=== PATIENT | female | born 1935 | race Caucasian/White ===

== ENCOUNTER → 2017-01-15 | Outpatient (CLI) | payer BC ==
[~2017-01-15] MED LIST: ASCO10003 PO; ASPEC81 PO; ATV1 PO; B-COTAB18 PO; DVNC160 PO; ETAN50IN2; FLV1 PO; FRS/40 PO; GLUCTAB7 PO; LACT1CAP6 PO; LEUC5TAB PO; METH2.5T PO; NIFE20CA PO; NXM/40 PO; SIMV40TA2 PO
[2017-01-15 10:58] LABS: BASO ABS # 0.06 K/uL (0-0.2); COMPLETE YES; EOS % 1.2 %; HEMATOCRIT 41.6 % (37-47); IG% 0.2 %; LYMPH % 26.3 %; LYMPH ABS # 1.56 K/uL (1.2-3.4); MEAN CELL VOLUME 93.9 fL (80-100); MEAN CORPUSCULAR HEMOGLOBIN 31.2 pg (25-34); MEAN CORPUSCULAR HGB CONC 33.2 g/dl (32-36); MEAN PLATELET VOLUME 10.1 fL (7.4-10.4); MONO % 10.4 %; NEUT % 60.9 %; PLATELET COUNT 315 K/uL (130-400); RED BLOOD COUNT 4.43 M/uL (4.2-5.4); WHITE BLOOD COUNT 5.94 K/uL (4.8-10.8)
[2017-01-15 11:08] LABS: ESTIMATED AVERAGE GLUCOSE 134 mg/dl; HA1C FLAG Normal (Normal)
[2017-01-15 11:17] LABS: ALT/SGPT 30 U/L (12-78); CREATININE 0.69 mg/dl (0.60-1.20)
[2017-01-15 11:19] LABS: ALT/SGPT 31 U/L (12-78); AST/SGOT 17 U/L (15-37); BLOOD UREA NITROGEN 20 mg/dl (7-18); BUN/CREATININE RATIO 28.8 (10-20); CARBON DIOXIDE 30 mmol/L (21-32); CHLORIDE 105 mmol/L (98-107); CHOLESTEROL 151 mg/dl (0-200); CREATININE 0.68 mg/dl (0.60-1.20); GLUCOSE 106 mg/dl (70-99); SODIUM 141 mmol/L (136-145); TRIGLYCERIDES 63 mg/dl (0-150); VERY LOW DENSITY LIPOPROT CALC 13 mg/dl
[2017-01-15 11:25] LABS: CALCIUM 8.9 mg/dl (8.5-10.1)
[2017-01-15 11:30] LABS: ALB/GLOB RATIO 1.1 (0.9-2); ALKALINE PHOSPHATASE 55 U/L (45-117); HDL CHOLESTEROL 74 mg/dl; THYROID STIMULATING HORMONE 0.928 uIu/ml (0.300-4.500)
[2017-01-15 11:30] LABS: ALKALINE PHOSPHATASE 59 U/L (45-117); AST/SGOT 20 U/L (15-37)
== END | disposition home or self-care (01) ==
LOC: C.LABBC 07:35
PROVIDERS: ATTEND Internal Medicine Rheumatology
DX: Z00.00 Encounter for general adult medical examination without abnormal findings (principal); E55.9 Vitamin D deficiency, unspecified; E11.9 Type 2 diabetes mellitus without complications; M06.9 Rheumatoid arthritis, unspecified; I10 Essential (primary) hypertension; Z79.899 Other long term (current) drug therapy

== ENCOUNTER → 2017-03-10 | Outpatient (CLI) | payer BC ==
--- NOTE | 2017-03-10 10:23 | DIAGNOSTIC IMAGING REPORT ---
CERVICAL SPINE 5 VIEWS HISTORY: Pain Neck pain COMPARISON: None. FINDINGS: The cervical spine is visualized from C1 through the superior endplate of T1. There is no fracture. No subluxation. Considerable degenerative disc change at C4-T1. No evidence for compression deformity. C1-C2 articulation is intact. IMPRESSION: Degenerative change primarily from the mid to lower cervical region. No acute process. Electronically signed by: Dread Fay M.D. 03/10/2017 10:22 AM Dictated Date/Time: 03/10/2017 10:21 AM
== END | disposition home or self-care (01) ==
LOC: C.RADBC 09:55
PROVIDERS: ATTEND Family Medicine
DX: M54.2 Cervicalgia (principal)

== ENCOUNTER → 2017-03-19 | Outpatient (CLI) | payer BC ==
[2017-03-19 17:17] LABS: BASO % 0.3 %; BASO ABS # 0.03 K/uL (0-0.2); COMPLETE YES; HEMATOCRIT 42.3 % (37-47); IG% 0.3 %; LYMPH % 15.4 %; LYMPH ABS # 1.52 K/uL (1.2-3.4); MEAN CELL VOLUME 93.6 fL (80-100); MEAN CORPUSCULAR HEMOGLOBIN 30.1 pg (25-34); MEAN CORPUSCULAR HGB CONC 32.2 g/dl (32-36); MEAN PLATELET VOLUME 10.5 fL (7.4-10.4); MONO % 5.7 %; NEUT % 78.3 %; PLATELET COUNT 327 K/uL (130-400); RED BLOOD COUNT 4.52 M/uL (4.2-5.4); WHITE BLOOD COUNT 9.86 K/uL (4.8-10.8)
[2017-03-19 17:26] LABS: ALT/SGPT 37 U/L (12-78); CREATININE 0.81 mg/dl (0.60-1.20)
[2017-03-19 17:29] LABS: ALKALINE PHOSPHATASE 55 U/L (45-117); AST/SGOT 17 U/L (15-37)
== END | disposition home or self-care (01) ==
LOC: C.LABBC 13:45
PROVIDERS: ATTEND Internal Medicine Rheumatology
DX: M06.9 Rheumatoid arthritis, unspecified (principal); M45.9 Ankylosing spondylitis of unspecified sites in spine; Z79.899 Other long term (current) drug therapy; M54.2 Cervicalgia

== ENCOUNTER → 2017-06-18 | Outpatient (CLI) | payer BC ==
[2017-06-18 16:48] LABS: BASO % 1.1 %; BASO ABS # 0.06 K/uL (0-0.2); COMPLETE YES; EOS % 2.8 %; HEMATOCRIT 40.2 % (37-47); LYMPH % 33.3 %; MEAN CELL VOLUME 92.8 fL (80-100); MEAN CORPUSCULAR HGB CONC 32.3 g/dl (32-36); MEAN PLATELET VOLUME 10.1 fL (7.4-10.4); MONO % 10.6 %; NEUT % 52.2 %; PLATELET COUNT 275 K/uL (130-400); RED BLOOD COUNT 4.33 M/uL (4.2-5.4)
[2017-06-18 17:00] LABS: ALT/SGPT 26 U/L (12-78); CREATININE 0.89 mg/dl (0.60-1.20)
[2017-06-18 17:03] LABS: ALKALINE PHOSPHATASE 58 U/L (45-117); AST/SGOT 21 U/L (15-37)
== END | disposition home or self-care (01) ==
LOC: C.LABBC 15:16
PROVIDERS: ATTEND Internal Medicine Rheumatology
DX: M06.9 Rheumatoid arthritis, unspecified (principal)

== ENCOUNTER → 2018-01-18 | Outpatient (CLI) | payer OTHER, MEDICARE ==
[2018-01-18 11:01] LABS: BASO % 0.8 %; BASO ABS # 0.04 K/uL (0-0.2); HEMATOCRIT 41.7 % (37-47); HEMOGLOBIN 13.9 g/dL (12.0-16.0); IG# 0.01 K/uL (0.00-0.02); LYMPH % 30.4 %; LYMPH ABS # 1.53 K/uL (1.2-3.4); MEAN CELL VOLUME 92.5 fL (80-100); MEAN CORPUSCULAR HEMOGLOBIN 30.8 pg (25-34); MEAN CORPUSCULAR HGB CONC 33.3 g/dl (32-36); MEAN PLATELET VOLUME 10.2 fL (7.4-10.4); MONO % 9.7 %; MONO ABS # 0.49 K/uL (0.11-0.59); NEUT % 54.9 %; NEUT ABS # 2.76 K/uL (1.4-6.5); PLATELET COUNT 293 K/uL (130-400); RED CELL DISTRIBUTION WIDTH CV 14.8 % (11.5-14.5); RED CELL DISTRIBUTION WIDTH SD 50.3 fL (36.4-46.3); WHITE BLOOD COUNT 5.03 K/uL (4.8-10.8)
[2018-01-18 11:22] LABS: HEMOGLOBIN A1C 6.1 % (4.5-5.6)
[2018-01-18 11:41] LABS: ALT/SGPT 31 U/L (12-78); AST/SGOT 25 U/L (15-37); BLOOD UREA NITROGEN 26 mg/dl (7-18); CALCIUM 9.1 mg/dl (8.5-10.1); CARBON DIOXIDE 32 mmol/L (21-32); CHOLESTEROL 158 mg/dl (0-200); CREATININE 1.12 mg/dl (0.60-1.20); GLUCOSE 136 mg/dl (70-99); SODIUM 138 mmol/L (136-145)
[2018-01-18 11:51] LABS: ALKALINE PHOSPHATASE 60 U/L (45-117); LDL CHOLESTEROL CALCULATED 64 mg/dl; TOTAL PROTEIN 7.4 gm/dl (6.4-8.2)
== END | disposition home or self-care (01) ==
LOC: C.LABBC 08:48
PROVIDERS: ATTEND Internal Medicine Endocrinology, Diabetes & Metabolism
DX: E11.9 Type 2 diabetes mellitus without complications (principal); E55.9 Vitamin D deficiency, unspecified; M06.9 Rheumatoid arthritis, unspecified; Z86.39 Personal history of other endocrine, nutritional and metabolic disease; Z79.899 Other long term (current) drug therapy

== ENCOUNTER 2020-03-12 07:02 | Observation (INO) ==
--- NOTE | 2020-03-03 21:21 | PAT Medication Instructions ---
Medication Instructions Date of Service March 03, 2020 Home Medications Medication Instructions Recorded adalimumab 40 mg/0.8 mL 40 mg SUBCUT UD #2 ml 06/23/19 subcutaneous syringe kit calcitriol 0.5 mcg capsule 0.5 mcg PO DAILY #180 cap 02/17/20 amlodipine 10 mg tablet 10 mg PO HS #90 tab 02/28/20 atorvastatin 40 mg tablet 40 mg PO HS #90 tab 02/28/20 calcium carbonate 215 mg calcium 215 mg PO DAILY #1 tab 02/28/20 (500 mg) chewable tablet calcium carbonate 500 mg calcium 600 mg PO DAILY #30 cap 02/28/20 (1,250 mg) capsule folic acid 1 mg tablet 1 mg PO 6XWK #90 tab 02/28/20 furosemide 40 mg tablet 40 mg PO QAM #90 tab 02/28/20 glucosamine HCl 1,500 mg tablet 3,000 mg PO DAILY #180 tab 02/28/20 leucovorin calcium 5 mg tablet 5 mg PO WK #12 tab 02/28/20 methotrexate sodium 2.5 mg tablet 15 mg PO WK #90 tab 02/28/20 metoprolol succinate 25 mg 25 mg PO QAM #90 tab 02/28/20 tablet,extended release 24 hr pantoprazole 40 mg tablet,delayed 20 mg PO DAILY #90 tab 02/28/20 release potassium gluconate 595 mg (99 mg) 595 mg PO DAILY #90 tab 02/28/20 tablet valsartan 320 mg tablet 320 mg PO QAM #90 tab 02/28/20 Basaglar KwikPen U-100 Insulin 100 See Rx Instructions SQ HS #30 ml NS 02/29/20 unit/mL (3 mL) subcutaneous blood sugar diagnostic #400 ea 02/29/20 lancets 33 gauge #400 ea 02/29/20 pen needle, diabetic 32 gauge x #100 ea 02/29/20" ascorbic acid (vitamin C) 1,000 mg tablet 1 gm PO DAILY cholecalciferol (vitamin D3) 50 mcg (2,000 unit) tablet 2,000 units PO DAILY cyanocobalamin (vitamin B-12) 500 mcg tablet 500 mcg PO DAILY adalimumab 40 mg/0.8 mL subcutaneous syringe kit 40 mg SUBCUT UD lorazepam 1 mg tablet 0.5 mg PO DAILY PRN calcitriol 0.5 mcg capsule 0.5 mcg PO DAILY B-complex with vitamin C [Super B Complex-Vitamin C] 1 tab PO DAILY diclofenac sodium 4 gm TOPICAL UD PRN esomeprazole magnesium 40 mg PO UD PRN lactobacillus combination no.4 [Probiotic] 3,000 mmu cells PO DAILY vit C,L-Kb-ejfbz-lutein-zeaxan [PreserVision AREDS-2] 1 tab PO BID amlodipine 10 mg tablet 10 mg PO HS atorvastatin 40 mg tablet 40 mg PO HS calcium carbonate 215 mg calcium (500 mg) chewable tablet 215 mg PO DAILY calcium carbonate 500 mg calcium (1,250 mg) capsule 600 mg PO DAILY folic acid 1 mg tablet 1 mg PO 6XWK furosemide 40 mg tablet 40 mg PO QAM glucosamine HCl 1,500 mg tablet 3,000 mg PO DAILY leucovorin calcium 5 mg tablet 5 mg PO WK methotrexate sodium 2.5 mg tablet 15 mg PO WK metoprolol succinate 25 mg tablet,extended release 24 hr 25 mg PO QAM pantoprazole 40 mg tablet,delayed release 20 mg PO DAILY potassium gluconate 595 mg (99 mg) tablet 595 mg PO DAILY valsartan 320 mg tablet 320 mg PO QAM Raheem Caro U-100 Insulin 100 unit/mL (3 mL) subcutaneous See Rx Instructions SQ HS ASK your prescriber and surgeon adalimumab 40 mg/0.8 mL subcutaneous syringe kit 40 mg SUBCUT UD methotrexate sodium 2.5 mg tablet 15 mg PO WK STOP taking 2 weeks before surgery (or as soon as possible if surgery is within 2 weeks) vit C,U-Tc-avfny-lutein-zeaxan [PreserVision AREDS-2] 1 tab PO BID glucosamine HCl 1,500 mg tablet 3,000 mg PO DAILY STOP taking 24 hours before surgery diclofenac sodium 4 gm TOPICAL UD PRN DO NOT take the morning of surgery ascorbic acid (vitamin C) 1,000 mg tablet 1 gm PO DAILY cholecalciferol (vitamin D3) 50 mcg (2,000 unit) tablet 2,000 units PO DAILY cyanocobalamin (vitamin B-12) 500 mcg tablet 500 mcg PO DAILY calcitriol 0.5 mcg capsule 0.5 mcg PO DAILY B-complex with vitamin C [Super B Complex-Vitamin C] 1 tab PO DAILY lactobacillus combination no.4 [Probiotic] 3,000 mmu cells PO DAILY calcium carbonate 215 mg calcium (500 mg) chewable tablet 215 mg PO DAILY calcium carbonate 500 mg calcium (1,250 mg) capsule 600 mg PO DAILY folic acid 1 mg tablet 1 mg PO 6XWK furosemide 40 mg tablet 40 mg PO QAM leucovorin calcium 5 mg tablet 5 mg PO WK potassium gluconate 595 mg (99 mg) tablet 595 mg PO DAILY valsartan 320 mg tablet 320 mg PO QAM Take morning of surgery With a small sip of water, OTHERWISE NOTHING TO EAT OR DRINK AFTER MIDNIGHT: lorazepam 1 mg tablet 0.5 mg PO DAILY PRN (if needed) esomeprazole magnesium 40 mg PO UD PRN (if needed) metoprolol succinate 25 mg tablet,extended release 24 hr 25 mg PO QAM pantoprazole 40 mg tablet,delayed release 20 mg PO DAILY Take evening before surgery lorazepam 1 mg tablet 0.5 mg PO DAILY PRN (if needed) esomeprazole magnesium 40 mg PO UD PRN (if needed) amlodipine 10 mg tablet 10 mg PO HS atorvastatin 40 mg tablet 40 mg PO HS Basaglar KwikPen U-100 Insulin 100 unit/mL (3 mL) subcutaneous See Rx Instructions SQ HS Other Notes If you have any questions please call us at [phone] or [phone] or [phone] or [phone]
--- NOTE | 2020-03-05 13:55 | Anesthesiology Consultation ---
Date of Service March 05, 2020 Assessment & Plan (1) Encounter for pre-operative examination: - EKG done 02/28/20 noting inferior infarct. Patient was referred by PCP to f/u with cardiology for further evaluation. Awaiting PCP-ordered cardiology evaluation scheduled 03/08 [place] - PCP office visit: 02/28/20: Chronic issues reviewed/addressed. Preop EKG noting inferior infarct. Patient referred to cardiology for preop evaluation. Patient "medically stable long as she is cleared by Cardiology" - LUE limb restriction s/p lymph node dissection Per PAT assessment on 03/05: Travel screen negative. No known COVID-19 positive contacts. No current COVID-19 related symptoms. No hx of COVID-19 testing. Chart Review Chart Review: Patient seen in Pre Admission Testing Teaching & Discussion Pre-Anesthesia Teaching/Discussion Notes: Instructed NPO after midnight before surgery,except medications with 15 cc of water. Medication instructions provided according to the PAT guidelines. History Surgery Operation Date: 03/12/20 11:05 Proposed Procedures p Right Total Knee Arthroplasty - Audi Barrientos DO Height/Weight Height: 5 ft 7 in Weight: 91.1 kg Allergies Allergy/AdvReac Type Severity Reaction Status Date / Time amoxicillin [From Augmentin] Allergy Unknown PATIENT Verified 03/05/20 14:53 DOES NOT REMEMBER Cipro Allergy Unknown NOT Verified 07/03/14 08:49 LEVAQUIN ciprofloxacin Allergy Unknown PATIENT Verified 03/05/20 14:53 DOES NOT REMEMBER clavulanic acid Allergy Unknown PATIENT Verified 03/05/20 14:53 [From Augmentin] DOES NOT REMEMBER hydrochlorothiazide Allergy Unknown PATIENT Verified 03/05/20 14:53 DOES NOT REMEMBER lisinopril Allergy Unknown PATIENT Verified 03/05/20 14:53 DOES NOT REMEMBER Sulfa (Sulfonamide Allergy Unknown HIVES Verified 03/05/20 11:50 Antibiotics) vaccine adjuvant system, AdvReac Unknown PT REPORTS Verified 03/05/20 11:50 AS01B liposomal CAN'T HAVE [From Shingrix (PF)] D/T TAKING HUMIRA varicella-zoster virus AdvReac Unknown PT REPORTS Verified 03/05/20 11:50 glycoprotein E, recombinant CAN'T HAVE [From Shingrix (PF)] D/T TAKING HUMIRA Medications Home Medications Medication Instructions Recorded Confirmed Last Taken ascorbic acid (vitamin C) 1,000 mg 1 gm PO DAILY tab 06/21/19 03/05/20 Unknown tablet cholecalciferol (vitamin D3) 50 2,000 units PO DAILY tab 06/21/19 03/05/20 Unknown mcg (2,000 unit) tablet cyanocobalamin (vitamin B-12) 500 500 mcg PO DAILY tab 06/21/19 03/05/20 Unknown mcg tablet adalimumab 40 mg/0.8 mL 40 mg SUBCUT UD #2 ml 06/23/19 03/05/20 02/26/20 subcutaneous syringe kit lorazepam 1 mg tablet 0.5 mg PO DAILY PRN tab 02/16/20 03/05/20 Unknown calcitriol 0.5 mcg capsule 0.5 mcg PO DAILY #180 cap 02/17/20 03/05/20 Unknown B-complex with vitamin C [Super B 1 tab PO DAILY 02/27/20 03/05/20 Unknown Complex-Vitamin C] diclofenac sodium 4 gm TOPICAL UD PRN 02/27/20 03/05/20 Unknown esomeprazole magnesium 40 mg PO UD PRN 02/27/20 03/05/20 Unknown lactobacillus combination no.4 3,000 mmu cells PO DAILY 02/27/20 03/05/20 Unknown [Probiotic] vit C,V-Yb-pgrgr-lutein-zeaxan 1 tab PO BID 02/27/20 03/05/20 Unknown [PreserVision AREDS-2] amlodipine 10 mg tablet 10 mg PO HS #90 tab 02/28/20 03/05/20 Unknown atorvastatin 40 mg tablet 40 mg PO HS #90 tab 02/28/20 03/05/20 Unknown calcium carbonate 215 mg calcium 215 mg PO DAILY #1 tab 02/28/20 03/05/20 Unknown (500 mg) chewable tablet calcium carbonate 500 mg calcium 600 mg PO DAILY #30 cap 02/28/20 03/05/20 Unknown (1,250 mg) capsule folic acid 1 mg tablet 1 mg PO 6XWK #90 tab 02/28/20 03/05/20 Unknown furosemide 40 mg tablet 40 mg PO QAM #90 tab 02/28/20 03/05/20 Unknown glucosamine HCl 1,500 mg tablet 3,000 mg PO DAILY #180 tab 02/28/20 03/05/20 Unknown leucovorin calcium 5 mg tablet 5 mg PO WK #12 tab 02/28/20 03/05/20 Unknown methotrexate sodium 2.5 mg tablet 15 mg PO WK #90 tab 02/28/20 03/05/20 Unknown metoprolol succinate 25 mg 25 mg PO QAM #90 tab 02/28/20 03/05/20 Unknown tablet,extended release 24 hr pantoprazole 40 mg tablet,delayed 20 mg PO DAILY #90 tab 02/28/20 03/05/20 Unknown release potassium gluconate 595 mg (99 mg) 595 mg PO DAILY #90 tab 02/28/20 03/05/20 Unknown tablet valsartan 320 mg tablet 320 mg PO QAM #90 tab 02/28/20 03/05/20 Unknown pen needle, diabetic 32 gauge x #100 ea 02/29/20 03/05/20 Unknown " Basaglar KwikPen U-100 Insulin 100 30 units SQ HS 90 Days #30 ml NS 03/04/20 03/05/20 Unknown unit/mL (3 mL) subcutaneous OneTouch Delica Lancets 33 gauge #300 ea NS 03/04/20 03/05/20 Unknown OneTouch Ultra Blue Test Strip #300 ea NS 03/04/20 03/05/20 Unknown Past Medical History Medical History Acid reflux controlled Diabetes IDDM Hiatal hernia History of anxiety History of breast cancer left History of diverticulitis years ago History of high cholesterol History of hyperparathyroidism (Inactive) History of neck problems + nodules, no ROM limitations HTN (hypertension) Hx of squamous cell carcinoma of skin Rheumatoid arthritis Exercise / Class Metabolic Activity III < 4 Walking/Shop/Light housework (uses cane PRN) Past Family History Family History Father History of lung cancer Sister History of breast cancer Other Family history of diabetes mellitus in father No pertinent family history Denies family history of Ovarian cancer Breast cancer Colorectal cancer Past Surgical History Surgical History H/O breast surgery LEFT WITH LYMPH NODES H/O Mohs micrographic surgery for skin cancer History of appendectomy History of bilateral oophorectomy History of colonoscopy History of endoscopy History of hysterectomy History of left cataract surgery History of parathyroid surgery History of right cataract surgery S/P abdominal hysterectomy S/P appendectomy S/P colonoscopy Past Anesthesia History No Family Hx of Anesthesia Complications and Other ("slow to wake" (in particular with 1971 hysterectomy), no known hx of reintubation) History of PONV History of PONV (occasional) and Hx of Motion Sickness (remote hx as child) Social History Smoking Status: Never smoker Do You Dip or Chew Tobacco: No Hx Alcohol Use: No Alcohol type: wine alcohol intake frequency: 0-2 drinks per day Alcohol Intake Frequency Comment: at most 1 drink/day Hx Substance Use: No substance use type: does not use Review of Systems Reflux controlled. Patient denies chest pain, shortness of breath, cough, wheezing, palpitations. Physical Exam Vital Signs VITALS BP P TEMP SP02 RESP PHYSICAL Full neck and c-spine range of motion. Full TMJ range of motion. TMD 3 finger breaths Mallampati Score 3 Dentition: intact, several crowns on molars Lungs: clear throughout to auscultation Cardiac: regular rate and rhythm, no murmurs noted Spine: normal Carotid arteries: negative bruit Extremities: no edema Testing Laboratory Results 03/05/20 14:23 PT 10.2 Seconds (9.0-12.0) 03/05/20 14:23 INR 1.0 (0.9-1.1) 03/05/20 14:23 APTT 23.6 Seconds (21.0-31.0) 03/05/20 14:23 Blood Type A Negative 03/05/20 14:23 Antibody Screen NEGATIVE 03/05/20 14:23 02/15/20 SODIUM 138 POTASSIUM 3.8 CHLORIDE 105 CO2 30 BUN 24 CREATININE 1.02 GLUCOSE 101 TSH 2.170 HGBA1C 6.2% Electrocardiogram Date: 02/28/20 sb AT 58BPM. RsR' (v1)- probable normal variant. Inferior infarct (age undetermined). PCP reviewed EKG and referred patient to cardiology for further evaluation Chest X-Ray Date: 03/05/20 No acute findings. Mild cardiomegaly without evidence for pulmonary edema. Mild elevation of the left hemidiaphragm.
--- NOTE | 2020-03-05 14:52 | XRay Report ---
XR chest Pre-admission PA/Lat CLINICAL HISTORY: Preoperative evaluation. COMPARISON STUDY: Chest radiograph September 04, 2008. FINDINGS: Note is made of mild elevation of the left hemidiaphragm. Mild cardiomegaly is noted withou t evidence for pulmonary edema. No consolidation to suggest pneumonia. Minimal bibasilar opacities fa vor atelectasis. IMPRESSION: 1. No acute findings. 2. Mild cardiomegaly without evidence for pulmonary edema. 3. Mild elevation of the left hemidiaphragm. ACT 112: Negative or not required by law. Electronically signed by: Gabriel Meyers M.D. 03/05/2020 2:51 PM
[2020-03-05 15:42] LABS: Basophils # (auto) 0.05 K/uL (0-0.2); Basophils % (auto) 0.8 %; Eosinophils # (auto) 0.08 K/uL (0-0.5); Eosinophils % (auto) 1.3 %; Hematocrit (blood only) 41.7 % (37-47); Hemoglobin 13.6 g/dL (12.0-16.0); Immature Granulocytes # (auto) 0.01 K/uL (0.00-0.02); Immature Granulocytes % (auto) 0.2 %; Lymphocytes # (auto) 1.64 K/uL (1.2-3.4); Lymphocytes % (auto) 26.5 %; Mean Corpuscular Hemoglobin 31.9 pg (25-34); Mean Corpuscular Hgb Conc 32.6 g/dL (32-36); Mean Corpuscular Volume 97.7 fL (80-100); Mean Platelet Volume 10.1 fL (7.4-10.4); Monocytes # (auto) 0.55 K/uL (0.11-0.59); Monocytes % (auto) 8.9 %; Neutrophils # (auto) 3.85 K/uL (1.4-6.5); Neutrophils % (auto) 62.3 %; Platelet Count 294 K/uL (130-400); RDW Coefficient of Variation 14.5 % (11.5-14.5); RDW Standard Deviation 51.2 fL (36.4-46.3); Red Blood Count 4.27 M/uL (4.2-5.4); White Blood Count 6.18 K/uL (4.8-10.8)
[2020-03-05 15:59] LABS: Partial Thromboplastin Ratio 0.8; Partial Thromboplastin Time 23.6 Seconds (21.0-31.0); Prothrombin Time 10.2 Seconds (9.0-12.0)
--- NOTE | 2020-03-11 07:50 | History & Physical Report ---
Date of Service March 11, 2020 Assessment & Plan (1) Rheumatoid arthritis of right knee: We will proceed with a right total knee arthroplasty. Postoperatively she will be started on aspirin for DVT prophylaxis and kept overnight in the hospital for postoperative medical management. She plans to use energy physical therapy upon discharge. Vania is a low risk for joint replacement surgery. She does not have any major comorbidities. Present on Admission?: Yes History of Present Illness Chief Complaint: Rheumatoid arthritis of the right knee Primary Care Provider: Bg Morgan MD Vania is a pleasant 84-year-old female who has been complaining of chronic increasing right knee pain. She has a history of rheumatoid arthritis. X-rays and clinical examination have been diagnostic for advanced rheumatoid arthritis of the right knee. After failing years of conservative treatment, she has elected to proceed with a right total knee arthroplasty. Allergies Allergy/AdvReac Type Severity Reaction Status Date / Time amoxicillin [From Augmentin] Allergy Unknown PATIENT Verified 03/08/20 08:38 DOES NOT REMEMBER Cipro Allergy Unknown NOT Verified 07/03/14 08:49 LEVAQUIN ciprofloxacin Allergy Unknown PATIENT Verified 03/08/20 08:38 DOES NOT REMEMBER clavulanic acid Allergy Unknown PATIENT Verified 03/08/20 08:38 [From Augmentin] DOES NOT REMEMBER hydrochlorothiazide Allergy Unknown PATIENT Verified 03/08/20 08:38 DOES NOT REMEMBER lisinopril Allergy Unknown PATIENT Verified 03/08/20 08:38 DOES NOT REMEMBER Sulfa (Sulfonamide Allergy Unknown HIVES Verified 03/08/20 08:38 Antibiotics) vaccine adjuvant system, AdvReac Unknown PT REPORTS Verified 03/08/20 08:38 AS01B liposomal CAN'T HAVE [From Shingrix (PF)] D/T TAKING HUMIRA varicella-zoster virus AdvReac Unknown PT REPORTS Verified 03/08/20 08:38 glycoprotein E, recombinant CAN'T HAVE [From Shingrix (PF)] D/T TAKING HUMIRA Home Medications Home Medications Medication Instructions Recorded Confirmed Type ascorbic acid (vitamin C) 1,000 mg 1 gm PO DAILY tab 06/21/19 03/08/20 History tablet cholecalciferol (vitamin D3) 50 2,000 units PO DAILY tab 06/21/19 03/08/20 History mcg (2,000 unit) tablet cyanocobalamin (vitamin B-12) 500 500 mcg PO DAILY tab 06/21/19 03/08/20 History mcg tablet adalimumab 40 mg/0.8 mL 40 mg SUBCUT UD #2 ml 06/23/19 03/08/20 Rx subcutaneous syringe kit lorazepam 1 mg tablet 0.5 mg PO DAILY PRN tab 02/16/20 03/08/20 History calcitriol 0.5 mcg capsule 0.5 mcg PO DAILY #180 cap 02/17/20 03/08/20 Rx B-complex with vitamin C [Super B 1 tab PO DAILY 02/27/20 03/08/20 History Complex-Vitamin C] diclofenac sodium 4 gm TOPICAL UD PRN 02/27/20 03/08/20 History esomeprazole magnesium 40 mg PO UD PRN 02/27/20 03/08/20 History lactobacillus combination no.4 3,000 mmu cells PO DAILY 02/27/20 03/08/20 History [Probiotic] vit C,B-Op-zfoir-lutein-zeaxan 1 tab PO BID 02/27/20 03/08/20 History [PreserVision AREDS-2] amlodipine 10 mg tablet 10 mg PO HS #90 tab 02/28/20 03/08/20 Rx atorvastatin 40 mg tablet 40 mg PO HS #90 tab 02/28/20 03/08/20 Rx calcium carbonate 215 mg calcium 215 mg PO DAILY #1 tab 02/28/20 03/08/20 Rx (500 mg) chewable tablet calcium carbonate 500 mg calcium 600 mg PO DAILY #30 cap 02/28/20 03/08/20 Rx (1,250 mg) capsule folic acid 1 mg tablet 1 mg PO 6XWK #90 tab 02/28/20 03/08/20 Rx furosemide 40 mg tablet 40 mg PO QAM #90 tab 02/28/20 03/08/20 Rx glucosamine HCl 1,500 mg tablet 3,000 mg PO DAILY #180 tab 02/28/20 03/08/20 Rx leucovorin calcium 5 mg tablet 5 mg PO WK #12 tab 02/28/20 03/08/20 Rx methotrexate sodium 2.5 mg tablet 15 mg PO WK #90 tab 02/28/20 03/08/20 Rx metoprolol succinate 25 mg 25 mg PO QAM #90 tab 02/28/20 03/08/20 Rx tablet,extended release 24 hr pantoprazole 40 mg tablet,delayed 20 mg PO DAILY #90 tab 02/28/20 03/08/20 Rx release potassium gluconate 595 mg (99 mg) 595 mg PO DAILY #90 tab 02/28/20 03/08/20 Rx tablet valsartan 320 mg tablet 320 mg PO QAM #90 tab 02/28/20 03/08/20 Rx pen needle, diabetic 32 gauge x #100 ea 02/29/20 03/05/20 Rx " Basaglar JadaikPen U-100 Insulin 100 30 units SQ HS 90 Days #30 ml NS 03/04/20 03/08/20 Rx unit/mL (3 mL) subcutaneous OneTouch Delica Lancets 33 gauge #300 ea NS 03/04/20 03/05/20 Rx OneTouch Ultra Blue Test Strip #300 ea NS 03/04/20 03/05/20 Rx Past Med/Surg History Medical History Acid reflux controlled Diabetes IDDM Hiatal hernia History of anxiety History of breast cancer left History of diverticulitis years ago History of high cholesterol History of hyperparathyroidism (Inactive) History of neck problems + nodules, no ROM limitations HTN (hypertension) Hx of squamous cell carcinoma of skin Rheumatoid arthritis Surgical History H/O breast surgery LEFT WITH LYMPH NODES H/O Mohs micrographic surgery for skin cancer History of appendectomy History of bilateral oophorectomy History of colonoscopy History of endoscopy History of hysterectomy History of left cataract surgery History of parathyroid surgery History of right cataract surgery S/P abdominal hysterectomy S/P appendectomy S/P colonoscopy Family History Father History of lung cancer Sister History of breast cancer Other Family history of diabetes mellitus in father No pertinent family history Denies family history of Ovarian cancer Breast cancer Colorectal cancer Social History Preferred Language: Yakut Communication Ability: Effective Visual Impairment: No Limitations Hearing Ability: Normal Nail Specialist Required: No Beliefs That Will Affect Care: None marital status: Current Living Situation: Spouse Feels Safe at Home: Yes Smoking Status: Never smoker Hx Alcohol Use: No Hx Substance Use: No Seatbelt Use: always Review of Systems Review of Systems: All systems reviewed & are unremarkable except as noted in HPI & below Physical Exam Constitutional: WD/WN, vitals as above Eyes: PERRL, conjunctivae normal, anicteric sclerae ENMT: external ear and nose normal, oropharynx normal Neck: trachea midline, no thyromegaly Respiratory: normal respiratory effort Cardiovascular: RRR, no murmur, no edema Gastrointestinal (Abdomen): normal bowel sounds, soft, nontender, no hepatosplenomegaly Musculoskeletal: On physical examination of the right knee there is a trace effusion. There is near full range of motion and no evidence of instability. There is significant tenderness palpation along the medial and lateral joint lines and over the distal femoral condyles. Psychiatric: A+Ox3, euthymic affect Results & Data Results & Data ([facility]) Diagnostic Findings Radiographs of the right knee demonstrate advanced osteoarthritis with joint space narrowing osteophyte formation and [id number] articulation. PG Care Time/CCT Total # of Minutes Spent Total Time Spent with Patient: Total time spent is greater than 50% in coordination of care (as documented) at patient's floor/unit and/or counseling patient: Coding Level of Care Code 01070 Initial Inpt Care Lvl 3 Diagnoses Rheumatoid arthritis of right knee M06.9
[~2020-03-12 07:02] MED LIST changes: +ACETAMINOPHEN 500 MG TAB PO SCH; -ASCO10003 PO; -ASPEC81 PO; -ATV1 PO; -B-COTAB18 PO; +BUPIVACAINE 0.5 % 5 MG/1 ML PF 10ML VIAL ONE; +CEFAZOLIN - ALLERGY NOTED TO ORDERED MEDICATION SCH; +CEFAZOLIN 2000MG 2,000 MG/15 ML SYR IV SCH; -DVNC160 PO; +EPINEPHrine INJ 1 MG/ML AMP ONE; -ETAN50IN2; +FAMOTIDINE 20 MG TAB PO SCH; -FLV1 PO; -FRS/40 PO; +GABAPENTIN 300 MG CAP PO SCH; -GLUCTAB7 PO; -LACT1CAP6 PO; -LEUC5TAB PO; +LR 500ML BOLUS, THEN 15ML/HR IV SCH; -METH2.5T PO; -NIFE20CA PO; -NXM/40 PO; +ROPIVACAINE 0.5% 5 MG/ML 30 ML VIAL ONE; +ROPIVACAINE 0.5% HCL/PF 150 MG, BUPIVACAINE 0.5% MPF 30 ML, EPINEPHrine 30MG/30ML (OR U... INSTIL SCH; -SIMV40TA2 PO; +TRANEXAMIC ACID 1,000 MG **IV Intra-op IV SCH; +TRANEXAMIC ACID 1,000 MG **IV Pre-op IV SCH; +dexAMETHasone 4 MG TAB PO SCH
[2020-03-12] MEDS ORDERED: MIDAZOLAM HCL 1 MG/ML 2ML VIAL ONE (07:35)
[2020-03-12] MEDS: LR 60ML/HR IV SCH ×2 (07:45→12:58)
[2020-03-12] MEDS ORDERED: ONDANSETRON INJ 2 MG/ML 2 ML VIAL ONE (07:52)
[2020-03-12] MEDS ORDERED: LIDOCAINE HCL 2% 2 ML VIAL/AMP(20MG/ML) INFIL ONE (07:52)
[2020-03-12] MEDS ORDERED: DEXAMETHASONE SOD INJ 4 MG/ML VIAL ONE (07:52)
[2020-03-12] MEDS ORDERED: GLYCOPYRROLATE 0.2 MG/ML VIAL ONE (07:52)
[2020-03-12] MEDS ORDERED: PROPOFOL IV EMULSION 10 MG/ML 20 ML VIAL IV ONE ×2 (07:52→10:31)
[2020-03-12] MEDS ORDERED: ONDANSETRON INJ 2 MG/ML 2 ML VIAL IV PRN ×2 (08:03→12:26)
[2020-03-12] MEDS ORDERED: ATROPINE SULFATE 0.1 MG/ML 10ML SYR IV PRN (08:03)
[2020-03-12] MEDS ORDERED: MEPERIDINE HCL 25 MG/ML CARP/VIAL IV PRN (08:03)
[2020-03-12] MEDS ORDERED: ePHEDrine sulfate 50 MG/ML AMP IV PRN (08:03)
[2020-03-12] MEDS ORDERED: HYDROmorphone INJ 1 MG/ML SYRINGE IV PRN (08:03)
[2020-03-12] MEDS ORDERED: PHENYLEPHRINE 100MCG/ML 5ML SYR IV PRN (08:03)
[2020-03-12] MEDS ORDERED: fentaNYL citrate 100 MCG/2 ML VIAL IV PRN (08:03)
[2020-03-12] MEDS ORDERED: LABETALOL HCL IV 5 MG/ML 20ML IV PRN (08:03)
[2020-03-12] MEDS ORDERED: CEFAZOLIN 2,000 MG/15 ML IV PUSH IV ONE (08:57)
--- NOTE | 2020-03-12 09:01 | History & Physical Bridge Note ---
Date of Service March 12, 2020 History & Physical Bridge Note I have examined the patient, reviewed the History & Physical and in the interval since the performance of the History & Physical I have noted the following changes of clinical significance: no changes noted
[2020-03-12] MEDS ORDERED: ORTHO JOINT ANESTHETIC ONE (09:17)
--- NOTE | 2020-03-12 10:51 | Operative Report ---
PG Post Operative Report Pre & Post Diagnosis Operation Date: 03/12/20 09:05 Pre-Op Diagnosis: Right Knee Degenerative Joint Disease Post-Op Diagnosis: Right Knee Degenerative Joint Disease I identified the patient and participated in the time-out.: Yes Procedure Operation Date: 03/12/20 09:05 Actual Procedures p Right Total Knee Arthroplasty(Right) - Audi Barrientos DO Surgeon Audi Barrientos DO Linter Drier Operator Audi Guzman PAC Estimated Blood Loss 10 Findings Consistent with Post-Op Diagnosis Specimens Right femoral and tibial bone Complications none Disposition Disposition: Recovery Room Indications Vania is a pleasant 84-year-old female who presented my office with complaints of chronic increasing right knee pain. X-rays and clinical examination were diagnostic for primary osteoarthritis of the right knee. After failing conservative treatment, she elected to proceed with a right total knee arthroplasty. Description of Procedure Implants used: I used a David Persona total knee arthroplasty system with a size 7 standard femur, D tibia, 29 patella, and a size 12 medial congruent polyethylene bearing. All components were cemented in place with Palacos G cement. Vania arrived [facility] for the above procedure. She was seen in the preoperative holding area and the operative extremity was identified and signed. She was given a preoperative antibiotic, TXA, a spinal anesthetic and an adductor nerve block. She was taken back to the operating room and laid on the table in supine position. She was given basic sedation. The operative knee was then prepped and draped in sterile fashion. A timeout was done, and the patient and the operative extremity was properly identified. A midline incision was made directly over the patella. Dissection was taken down to the extensor mechanism. A subvastus arthrotomy was used. The medial retinaculum was released and the fat pad was mostly excised. The knee was flexed and the ACL, PCL, and meniscus were removed. A drill was sent down the center of the femoral canal followed by an intramedullary ravi. Off that ravi a distal femoral cutting block was placed. 9 mm was resected off the distal femur at 5 of valgus. A posterior referencing AP sizing guide was then placed on the distal femur. The femur measured to be a size 7. 2 drill holes were placed in 3 of external rotation. A 4-in-1 cutting block was then impacted into place. Anterior, posterior, and chamfer cuts were then made. The proximal tibia was then exposed. An external tibial alignment guide was placed. A tibial cut guide was then anchored in place to resect 2 mm off the low medial side. The proximal tibia was then resected. The tibia measured to be a size D. The tibial plate was then placed in the appropriate rotation and the tibia was drilled and punched. The posterior aspect of the knee was then opened up and any additional meniscus fragments and osteophytes were removed. Trial components were then placed. I used a size 12 medial congruent polyethylene insert. The knee was brought through a full range of motion and felt to be stable. The patella was then everted and 8 mm was resected off the posterior aspect of the patella. The patella measured to be a size 29. 3 peg holes were then drilled. A trial patella was placed. The knee was once again brought through a full range of motion and felt to be stable. Trial components were then removed. The surrounding soft tissues were injected with 100 cc of an orthopedic pain control cocktail. All components were then cemented into place with Palacos G cement. The final polyethylene insert was then snapped into place and the anterior bar was locked. Once cement was dry the tourniquet was deflated. Hemostasis was obtained. A dilute betadyne lavage was then done for 3 minutes. The joint was then irrigated with normal saline solution. The subvastus arthrotomy was then closed with #1 Vicryl suture. The skin was closed with 2-0 Vicryl, 3-0V lock suture, and gary. A soft compressive dressing was placed. She was then transferred to a hospital bed and taken to the postanesthesia care unit in stable condition. She tolerated the procedure well. Audi Guzman PA-C, was present for the entire procedure. He was critical for patient positioning, prepping, draping, retraction exposure, wound closure and application of sterile dressing. I attest to the content of the Intraoperative Record and any orders documented therein. Any exceptions are noted below.
--- NOTE | 2020-03-12 11:29 | XRay Report ---
XR knee RT 1 or 2V routine CLINICAL HISTORY: Surgical Post Op postoperative evaluation COMPARISON: 06/05/2008 DISCUSSION: Anatomic alignment posttotal right knee arthroplasty. Could contact between prosthetic an d underlying bone. Expected postoperative soft tissue change IMPRESSION: Anatomic alignment post total right knee arthroplasty. ACT 112: Negative or not required by law. The above report was generated using voice recognition software. It may contain grammatical, syntax or spelling errors. Electronically signed by: Dread Fay M.D. 03/12/2020 11:28 AM
--- NOTE | 2020-03-12 11:40 | Anesthesiology Progress Note ---
Date of Service March 12, 2020 Anesthesia Post Procedure Vital Signs Vital Signs: Temp Pulse Pulse Resp BP Pulse Ox 03/12/20 11:30 65 16 145/67 H 97 03/12/20 11:20 57 L 16 125/65 96 03/12/20 11:14 36.4 C L 55 L 16 125/60 96 03/12/20 08:16 37.1 C 58 L 17 176/73 H 96 03/12/20 07:30 37.5 C 62 20 154/76 H 98 Transfer of Care Handoff Completed per policy Notes Mental Status: alert / awake / arousable Patient Amnestic to Procedure: Yes Nausea / Vomiting: adequately controlled Pain: adequately controlled Airway Patency, RR, SpO2: stable & adequate BP & HR: stable & adequate Hydration State: stable & adequate Neuraxial Anesthesia: was administered and sensory block is resolving Anesthetic Complications: no major complications apparent and Pt Satisfied with anesthetic care
[2020-03-12] MEDS ORDERED: MAGNESIUM HYDROXIDE SUSP 30 ML UDC PO PRN (12:26)
[2020-03-12] MEDS ORDERED: HYDROmorphone INJ 0.5 MG/0.5 ML SYR IV PRN (12:26)
[2020-03-12] MEDS ORDERED: METOCLOPRAMIDE HCL INJ 5 MG/ML 2 ML VIAL IV PRN (12:26)
[2020-03-12] MEDS ORDERED: PANTOprazole 40 MG TAB PO PRN (12:26)
[2020-03-12] MEDS ORDERED: SODIUM CHLORIDE 0.9% 1000ML 1,000 ML IV SCH (12:26)
[2020-03-12] MEDS ORDERED: KETOROLAC TROMETHAMINE 15 MG/ML VIAL IV SCH (12:26)
[2020-03-12] MEDS ORDERED: OXYCODONE HCL IR 5 MG TAB (IMMEDIATE RELEASE) PO PRN (12:26)
[2020-03-12] MEDS ORDERED: bisacodyL 10 MG SUPP PR PRN (12:26)
[2020-03-12] MEDS ORDERED: NALOXONE HCL 0.4 MG/1 ML VIAL/CARP IV PRN (12:26)
[2020-03-12] MEDS ORDERED: PHARMACY GLYCEMIC MGMT CONSULT PRN (12:36)
--- NOTE | 2020-03-12 13:12 | Pharmacy Report ---
Glycemic Control Consultation - Date of Service March 12, 2020 - Scope Scope: Glycemic Pharmacist consulted for glycemic control and to write orders per [facility] inpatient glycemic control protocol. - Objective Weight: 91.9 kg Accuchecks BSG (last 24hrs): 03/12/20 03/12/20 03/12/20 07:26 09:22 11:19 POC Glucose 84 93 119 H 03/12/20 12:51 POC Glucose 93 HbA1c: HbA1c = 6.2% on 02/15/20 - Recent Pertinent Medications Outpatient Anti-diabetic Regimen: * Lantus 30 units SQ HS Risk Factors for Insulin Resistance: * Steroids * Recent Surgery * Diet - Assessment & Plan Assessment & Plan: ASSESSMENT: * 84yo T2DM female with excellent outpatient control per recent A1c. May be too tightly controlled based on age/co-morbidities. Outpatient insulin dosing just reduced by Endo from 36 units HS to 30 units HS. Pt is fearful of lows. * Pt is maintained on basal insulin monotherapy as an outpatient - assuming that this monotherapy insulin is covering some prandial needs as well as basal needs based on admitting BSGs (84, 93, 119, 93 mg/dl). BSGs on the low side while NPO. 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 * Pt received DXM 8mg PO preop + DXM 4 mg IV intraop + ortho mix (contrains 4mg DXM) intraarticular. Steroid induced hyperglycemia likely to occur once PO intake resumed (steroids have their most profound effect on post-prandial hyperglycemia) * Will use weight based/stress dosing CF/CR for steroid induced hyperglycemia. * Unsure of true basal needs therefore will set a scale based on BSG for dosing this evening. Pt will likely need less that outpatient dosing of basal insulin since prandial insulin with NovoLog is being ordered PLAN FOR INPATIENT GLYCEMIC CONTROL: * Basal insulin * Lantus SQ HS - dose based on BSG * BSG < 140 --> 15 units * BSG 140-180 --> 20 units * BSG > 180 --> 25 units * Bolus insulin * NovoLog per scale ACHS or Q6hrs while NPO * Goal Range: Low 110 mg/dL - High 140 mg/dL * Correction Factor: 25 mg/dL/unit * Nutritional / Prandial insulin per carb ratio of 1 unit per 8 grams CHO consumed * Please note that the plan above was derived based on current level of insulin resistance and hospital stress. These recommendations are appropriate for inpatient admission only. Plan of care upon discharge will need to be reassessed to avoid potential outpatient hypo/hyperglycemia. Thank you.
[2020-03-12] MEDS ORDERED: GLUCOSE 10 TABS/TUBE PO PRN (13:15)
[2020-03-12] MEDS ORDERED: GLUCOSE 40% GEL 15 GM TUBE PO PRN (13:15)
[2020-03-12] MEDS ORDERED: GLUCAGON FOR INJ 1 MG VIAL IM PRN (13:15)
[2020-03-12] MEDS ORDERED: CARBOHYDRATES FOR HYPOGLYCEMIA PO PRN (13:15)
[2020-03-12] MEDS ORDERED: DEXTROSE 50% 50 ML SYRINGE IV PRN (13:15)
[2020-03-12] MEDS: ACETAMINOPHEN 500 MG TAB PO SCH ×2 (13:29→21:14)
[2020-03-12] MEDS ORDERED: COUGH DROP (SUGAR FREE) LOZ 24 LOZ/1 BOX BUCCAL PRN (16:38)
[2020-03-12] MEDS: CEFAZOLIN 2000MG 2,000 MG/15 ML SYR IV SCH ×2 (18:03→23:47)
[2020-03-12] MEDS: INSULIN ASPART 100 UNITS/ML 3 ML PEN SC SCH ×2 (18:03→21:20)
[2020-03-12] MEDS ORDERED: INSULIN GLARGINE SOLOSTAR 100 UNITS/ML 3 ML PEN SC SCH (21:00)
[2020-03-12] MEDS ORDERED: ATORVASTATIN 40 MG TAB PO SCH (21:00)
[2020-03-12] MEDS ORDERED: AMLODIPINE BESYLATE 5 MG TAB PO SCH (21:00)
[2020-03-12] MEDS ORDERED: SENNA 8.6 MG TAB PO SCH (21:00)
[2020-03-12] MEDS: ASPIRIN 81 MG ECTAB PO SCH (21:14)
[2020-03-12] MEDS: DOCUSATE SODIUM 100 MG CAP PO SCH (21:15)
[2020-03-12] MEDS ORDERED: LORazepam 0.5 MG TAB PO PRN (23:20)
[2020-03-13] MEDS: ACETAMINOPHEN 500 MG TAB PO SCH ×2 (05:51→13:33)
[2020-03-13 06:49] LABS: Hematocrit (blood only) 33.8 % (37-47); Hemoglobin 11.3 g/dL (12.0-16.0); Mean Corpuscular Hemoglobin 31.8 pg (25-34); Mean Corpuscular Hgb Conc 33.4 g/dL (32-36); Mean Corpuscular Volume 95.2 fL (80-100); Mean Platelet Volume 9.9 fL (7.4-10.4); Platelet Count 254 K/uL (130-400); RDW Coefficient of Variation 14.3 % (11.5-14.5); RDW Standard Deviation 49.5 fL (36.4-46.3); Red Blood Count 3.55 M/uL (4.2-5.4); White Blood Count 13.03 K/uL (4.8-10.8)
--- NOTE | 2020-03-13 06:53 | Orthopedic Progress Note ---
Date of Service March 13, 2020 Assessment & Plan (1) History of total right knee replacement: Overall she is doing very well. She is not having much pain in the right knee. The dressing has been reinforced. She is on aspirin twice a day for DVT prophylaxis. She will be seen by physical therapy today for ambulation and range of motion exercises. She can be discharged home later today. She will follow-up with orthopedics in 2 weeks. Present on Admission?: Yes Subjective Vania was seen and examined at bedside this morning. Overall she is doing very well. She is not in too much pain in the right knee. She has been up and ambulating. She has no complaints. Physical Exam Musculoskeletal: On physical examination of the right knee, there is a little bit of bloody discharge from the dressing. This has been reinforced. Her right knee is out in full extension. She has active dorsiflexion and plantarflexion of the right ankle. Results & Data ([facility]) Vital Signs (Past 12 Hours) Vital Signs Temp Pulse Pulse Resp BP Pulse Ox 03/13/20 03:18 36.7 C 67 18 144/74 H 96 03/12/20 23:05 36.8 C 61 16 116/69 94 03/12/20 19:36 36.6 C 59 L 18 138/80 95 Laboratory Results H & H 03/05/20 03/13/20 Range/Units 14:23 06:21 Hgb 13.6 11.3 L (12.0-16.0) g/dL Hct 41.7 33.8 L (37-47) % Coagulation 03/05/20 Range/Units 14:23 INR 1.0 (0.9-1.1) Diagnostic Findings Postoperative x-rays of the right knee show the prosthesis to be in anatomic alignment without any evidence of fracture, dislocation, or loosening. PG Care Time/CCT Total # of Minutes Spent Total Time Spent with Patient: Total time spent is greater than 50% in coordination of care (as documented) at patient's floor/unit and/or counseling patient: Coding Level of Care Code None Diagnoses History of total right knee replacement Z96.651
--- NOTE | 2020-03-13 06:55 | Discharge Summary ---
Date of Service March 13, 2020 Admission HPI Per Admitting Provider Vania is a pleasant 84-year-old female who has been complaining of chronic increasing right knee pain. She has a history of rheumatoid arthritis. X-rays and clinical examination have been diagnostic for advanced rheumatoid arthritis of the right knee. After failing years of conservative treatment, she has elected to proceed with a right total knee arthroplasty. Principal Diagnosis Right total knee arthroplasty Discharge Data Allergies Allergy/AdvReac Type Severity Reaction Status Date / Time amoxicillin [From Augmentin] Allergy Unknown PATIENT Verified 03/12/20 07:23 DOES NOT REMEMBER Cipro Allergy Unknown NOT Verified 07/03/14 08:49 LEVAQUIN ciprofloxacin Allergy Unknown PATIENT Verified 03/12/20 07:23 DOES NOT REMEMBER clavulanic acid Allergy Unknown PATIENT Verified 03/12/20 07:23 [From Augmentin] DOES NOT REMEMBER hydrochlorothiazide Allergy Unknown PATIENT Verified 03/12/20 07:23 DOES NOT REMEMBER lisinopril Allergy Unknown PATIENT Verified 03/12/20 07:23 DOES NOT REMEMBER Sulfa (Sulfonamide Allergy Unknown HIVES Verified 03/12/20 07:23 Antibiotics) vaccine adjuvant system, AdvReac Unknown PT REPORTS Verified 03/12/20 07:23 AS01B liposomal CAN'T HAVE [From Shingrix (PF)] D/T TAKING HUMIRA varicella-zoster virus AdvReac Unknown PT REPORTS Verified 03/12/20 07:23 glycoprotein E, recombinant CAN'T HAVE [From Shingrix (PF)] D/T TAKING HUMIRA Consultations 03/12/20 12:26 Consult Case Management - Discharge Planning Routine Procedures Performed Operation Date: 03/12/20 09:05 Actual Procedures p Right Total Knee Arthroplasty(Right) - Audi Barrientos DO Ordered Studies 03/12/20 05:00 US - OR guided needle placemen Routine Hospital Course (1) History of total right knee replacement: On March 12, [address] [facility] and underwent a right total knee arthroplasty without complication. She had a spinal anestheti c. Postoperatively she was started on aspirin for DVT prophylaxis and transferred to the general orthopedic floors. Her hospital course was uneventful. On postop day #1 her H&H was stable and her pain was well controlled. She was able to participate well with physical therapy doing ambulation and range of motion exercises. She was then discharged home. She will follow-up with orthopedics in 2 weeks. Total Time Total Time Spent Total Time Spent (In Minutes): 20 Discharge Plan Discharge Items Patient Disposition: Home - Home Health Services Reason For Visit: Right Knee Degenerative Joint Disease Discharge Diagnosis: Right knee replacement Activity: As commented below Non-emergency contact: Surgeon Call non-emergency contact if: your wound has increased redness and your wound has increased drainage Follow-up/Referrals: Bg Morgan MD [Primary Care Provider] - Diet: Carb Consistent or DM2 Addtl Attending Provider Instructions: Activity and Therapy Recommendations: * If you are using [facility] then therapy will be provided at your home until they feel you have accomplished all of your goals. * If you are using [facility] then Physical Therapy will be provided until they feel you are ready to start Outpatient Physical Therapy. * If you are not using home therapy then Outpatient Physical Therapy should start about 3-5 days from your day of surgery. Therapy will last about 6-10 weeks * It is important not to put a pillow under your knee when you are relaxing or sleeping. It is just as important to make sure you are getting your knee perfectly straight as it is to regain your knee bend. * You were shown a series of exercises in the hospital. Do these exercises three times each day including the exercises you were shown in physical therapy. * Get up and walk several times each day. For the first four weeks, try not to stand or walk for more than one hour at a time. If you do stand or walk for more than one hour, you will not hurt anything, but your leg will likely swell. * As you feel comfortable, you may change from the walker or crutches to a cane and then to independent walking. Medications: * Narcotic You will likely be sent home from the hospital with a prescription for the narcotic pain medication that worked best throughout your stay. * Aspirin Most patients will be required to take Aspirin 81mg twice a day for 6 weeks after surgery. This is obtained [id number] and a prescription is not necessary. * Other medications may be prescribed for specific circumstances. If you have any questions, please call the office at . * Resume previous home medications unless otherwise instructed TEDs/Elastic Stockings: The white elastic stockings help limit swelling and prevent blood clots from forming in your legs.~ The more you wear them, the more they work. Wear them for six weeks. Dressing Care: Leave the silver dressing in place for 7 days. After 7 days you may remove the dressing. If the incision is not draining then you may leave the gary open to air. If there is a little bit of drainage or if the gary are getting stuck on your clothing then cover the incision with a dry dressing. The gary will be removed at your 2 week follow-up appointment. Showering: You may shower with the silver dressing in place. Do not scrub or soak the dressing. After 7 days you may remove the dressing and shower with the gary exposed. Let the soapy shower water run over the gary and pat them dry. Do not scrub or soak the incision. Things To Watch For: * Drainage from the incision site that occurs more than one week after your surgery. * Increased redness at the incision site. * Fever above 102 degrees Fahrenheit. * Unusual chest pain or shortness of breath. * Call [facility] at with any of the above problems Follow-Up Visit: Follow-up with Dr. Barrientos's PA (Audi Guzman) 2-3 weeks after your day of surgery. He will remove your gary and answer any questions. If you have any additional questions or concerns, Dr Barrientos is usually in the office at the same time and will be available An appointment was probably scheduled when you signed-up for surgery in the office. If you have any questions call Office Instructions: More detailed instructions as well as Frequently Asked Questions were provided in a folder by our office when you signed-up for surgery. Please review these instructions when you get home. If you have any further questions or concerns, please feel free to call the office at [phone] Pending Studies at Discharge: No Stand-Alone Forms: My [employer], Smoking Cessation Medications and DC Order Prescriptions: New oxycodone 5 mg Tablet 5 mg PO Q4H PRN (Reason: pain) Qty: 30 RF: 0 aspirin 81 mg Tablet,Delayed Release (Dr/Ec) 81 mg PO BID 42 Days Qty: 0 RF: 0 Continued calcium carbonate 500 mg calcium (1,250 mg) capsule 600 mg PO DAILY Qty: 30 RF: 0 (DME) pen needle, diabetic [BD Ultra-Fine Darline Pen Needle] 32 gauge x 5/32" needle See Rx Instructions .ROUTE .MEDSUPPLY Qty: 100 RF: 3 Basaglar KwikPen U-100 Insulin 100 unit/mL (3 mL) insulin pen 30 units SQ HS 90 Days Qty: 30 RF: 3 (DME) lancets [Invia.czTouch Delica Lancets] 33 gauge misc See Rx Instructions .ROUTE .MEDSUPPLY Qty: 300 RF: 3 (DME) blood sugar diagnostic [The [employer] Ultra Blue Test Strip] Strip See Rx Instructions .ROUTE .MEDSUPPLY Qty: 300 RF: 3 calcitriol 0.5 mcg capsule 0.5 mcg PO DAILY Qty: 90 RF: 1 adalimumab 40 mg/0.8 mL syringe kit 40 mg subcut UD Qty: 2 RF: 3 lorazepam 1 mg tablet 0.5 mg PO DAILY PRN (Reason: anxiety) RF: 0 methotrexate sodium 2.5 mg tablet 15 mg PO WK Qty: 90 RF: 1 valsartan 320 mg tablet 320 mg PO QAM Qty: 90 RF: 1 leucovorin calcium 5 mg tablet 5 mg PO WK Qty: 12 RF: 0 Antacid Calcium 215 mg calcium (500 mg) tablet,chewable 215 mg PO DAILY Qty: 1 RF: 0 amlodipine 10 mg tablet 10 mg PO HS Qty: 90 RF: 1 atorvastatin 40 mg tablet 40 mg PO HS Qty: 90 RF: 1 folic acid 1 mg tablet 1 mg PO 6XWK Qty: 90 RF: 3 furosemide 40 mg tablet 40 mg PO QAM Qty: 90 RF: 1 glucosamine HCl 1,500 mg tablet 3,000 mg PO DAILY Qty: 180 RF: 1 metoprolol succinate 25 mg tablet extended release 24 hr 25 mg PO QAM Qty: 90 RF: 1 pantoprazole 40 mg tablet,delayed release (DR/EC) 20 mg PO DAILY Qty: 90 RF: 1 potassium gluconate 595 mg (99 mg) tablet 595 mg PO DAILY Qty: 90 RF: 1 ascorbic acid (vitamin C) 1,000 mg tablet 1 gm PO DAILY RF: 0 cyanocobalamin (vitamin B-12) 500 mcg tablet 500 mcg PO DAILY RF: 0 cholecalciferol (vitamin D3) 2,000 unit tablet 2,000 units PO DAILY RF: 0 esomeprazole magnesium 40 mg capsule,delayed release(DR/EC) 40 mg PO UD PRN (Reason: Acid Reflux) RF: 0 diclofenac sodium 1 % gel 4 gm topical UD PRN (Reason: Pain) RF: 0 B-complex with vitamin C [Super B Complex-Vitamin C] Tablet 1 tab PO DAILY RF: 0 Probiotic 3 billion cell Capsule 3,000 mmu cells PO DAILY RF: 0 PreserVision AREDS-2 [id number] fr-ddcg-on-mg Capsule 1 tab PO BID RF: 0 Discharge Orders: Discharge Order (Routine); Ordered 03/13/20 Ordered By: Audi Barrientos Admission Data Admit Date/Time: 03/12/20 12:17 Attending Provider: Audi Barrientos Admit Provider: Audi Barrientos Primary Care Provider: Bg Morgan V. Coding Level of Care Code D/C Day Management <30 mins Diagnoses History of total right knee replacement Z96.651
[2020-03-13 07:16] LABS: BUN Creatinine Ratio 19.7 (10-20); Calcium 8.1 mg/dl (8.5-10.1); Creatinine Clr Calc Pharmacy 43.5 ml/min; Est GFR (African American) 52.2; Est GFR (Non-African American) 45.1; Potassium 3.8 mmol/L (3.5-5.1)
[2020-03-13] MEDS ORDERED: FOLIC ACID 1 MG TAB PO SCH (09:00)
[2020-03-13] MEDS ORDERED: MULTIVITAMIN TAB PO SCH (09:00)
[2020-03-13] MEDS ORDERED: FUROSEMIDE 40 MG TAB PO SCH (09:00)
[2020-03-13] MEDS ORDERED: VALSARTAN 80 MG TAB PO SCH (09:00)
[2020-03-13] MEDS ORDERED: METOPROLOL SUCC 25MG EXT REL TAB PO SCH (09:00)
[2020-03-13] MEDS ORDERED: CEROVITE ADV FORMULA TAB PO SCH (09:00)
[2020-03-13] MEDS ORDERED: PANTOprazole 40 MG TAB PO SCH (09:00)
[2020-03-13] MEDS ORDERED: NON-FORMULARY MEDICATION (Potassium Gluconate 595 MG) PO SCH (09:00)
[2020-03-13] MEDS: DOCUSATE SODIUM 100 MG CAP PO SCH (09:02)
[2020-03-13] MEDS: ASPIRIN 81 MG ECTAB PO SCH (09:02)
[2020-03-13] MEDS: INSULIN ASPART 100 UNITS/ML 3 ML PEN SC SCH ×2 (09:04→13:35)
--- NOTE | 2020-03-13 13:11 | Pharmacy Report ---
Pharmacy Glycemic Short Note 2 - Date of Service March 13, 2020 - Glycemic Short BSG Results (Last 24 hours): OUTPATIENT ANTIDIABETIC REGIMEN: * Lantus 30 units SQ HS * Recently reduced from 36 units SQ HS * A1c = 6.2% on 02/15/20 ASSESSMENT: 03/13 * Patient required 21 units of insulin yesterday: * 15 units basal * 6 units bolus * BSGs ranged 84 - 154 mg/dL * Fasting BSG this AM was 99 mg/dL, below goal but acceptable * Lunchtime BSG was 105 mg/dL, below goal again * Will maintain CF/CR parameters but decrease basal scale this evening to prevent hypoglycemia 03/12 * 84yo T2DM female with excellent outpatient control per recent A1c. May be too tightly controlled based on age/co-morbidities. Outpatient insulin dosing just reduced by Endo from 36 units HS to 30 units HS. Pt is fearful of lows. * Pt is maintained on basal insulin monotherapy as an outpatient - assuming that this monotherapy insulin is covering some prandial needs as well as basal needs based on admitting BSGs (84, 93, 119, 93 mg/dl). BSGs on the low side while NPO. 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 * Pt received DXM 8mg PO preop + DXM 4 mg IV intraop + ortho mix (contrains 4mg DXM) intraarticular. Steroid induced hyperglycemia likely to occur once PO intake resumed (steroids have their most profound effect on post-prandial hyperglycemia) * Will use weight based/stress dosing CF/CR for steroid induced hyperglycemia. * Unsure of true basal needs therefore will set a scale based on BSG for dosing this evening. Pt will likely need less that outpatient dosing of basal insulin since prandial insulin with NovoLog is being ordered PLAN FOR INPATIENT GLYCEMIC CONTROL: * Basal insulin * Lantus per scale SQ HS: * 10 units for BSG below 180 mg/dL * 15 units for BSG 180 mg/dL or above * Bolus insulin * NovoLog per scale ACHS or Q6hrs while NPO * Goal Range: Low 110 mg/dL - High 140 mg/dL * Correction Factor: 25 mg/dL/unit * Nutritional / Prandial insulin per carb ratio of 1 unit per 8 grams CHO consumed PLAN FOR DISCHARGE: * A1c = 6.2% shows excellent outpatient control of T2DM * Recommend decreasing home Lantus dose further by 20% to 25 units SQ HS
[2020-03-16] MEDS ORDERED: metHOTREXate sodium 2.5 MG TAB PO SCH (21:00)
[2020-03-17] MEDS ORDERED: LEUCOVORIN CALCIUM 5 MG TAB PO SCH (21:00)
== END 2020-03-13 15:38 | disposition home or self-care (01) ==
LOC: 3E 07:02 → ASU 07:02

== ENCOUNTER 2021-01-14 05:14 | Observation (INO) ==
--- NOTE | 2020-09-03 10:45 | PAT Medication Instructions ---
Medication Instructions Date of Service September 03, 2020 Home Medications Medication Instructions Recorded atorvastatin 40 mg tablet 40 mg PO HS #90 tab 02/28/20 folic acid 1 mg tablet 1 mg PO 6XWK #90 tab 02/28/20 furosemide 40 mg tablet 40 mg PO QAM #90 tab 02/28/20 leucovorin calcium 5 mg tablet 5 mg PO WK #12 tab 02/28/20 methotrexate sodium 2.5 mg tablet 15 mg PO WK #90 tab 02/28/20 pen needle, diabetic 32 gauge x #100 ea 02/29/20" OneTouch Delica Lancets 33 gauge #300 ea NS 03/04/20 OneTouch Ultra Blue Test Strip #300 ea NS 03/04/20 Wheeled Walker #1 ea 03/13/20 valsartan 320 mg tablet 320 mg PO QAM #90 tab 08/02/20 amoxicillin 500 mg tablet 2,000 mg PO ONCE #4 tab 08/23/20 calcitriol 0.5 mcg capsule 0.5 mcg PO .every other day #90 cap 08/28/20 ascorbic acid (vitamin C) 1,000 mg tablet 1 gm PO QAM cholecalciferol (vitamin D3) 50 mcg (2,000 unit) tablet 2,000 units PO QDL cyanocobalamin (vitamin B-12) 500 mcg tablet 500 mcg PO QDL B-complex with vitamin C [Super B Complex-Vitamin C] 1 tab PO QDL PreserVision AREDS-2 1 tab PO BID Probiotic 3,000 mmu cells PO QDL diclofenac sodium 4 gm TOPICAL UD PRN atorvastatin 40 mg tablet 40 mg PO HS folic acid 1 mg tablet 1 mg PO 6XWK furosemide 40 mg tablet 40 mg PO QAM leucovorin calcium 5 mg tablet 5 mg PO WK methotrexate sodium 2.5 mg tablet 15 mg PO WK adalimumab 40 mg/0.8 mL subcutaneous syringe kit 40 mg SUBCUT UD valsartan 320 mg tablet 320 mg PO QAM amoxicillin 500 mg tablet 2,000 mg PO ONCE Silvanoaglar KwikPen U-100 Insulin 28 units SQ HS calcitriol 0.5 mcg capsule 0.5 mcg PO .every other day calcium carbonate 600 mg PO QDL esomeprazole magnesium [Nexium] 40 mg PO DAILY PRN glucosamine HCl 3,000 mg PO QDL lorazepam 0.5 mg PO HS PRN spironolactone 50 mg PO QAM Continue as directed amoxicillin 500 mg tablet 2,000 mg PO ONCE ASK your prescriber and surgeon leucovorin calcium 5 mg tablet 5 mg PO WK methotrexate sodium 2.5 mg tablet 15 mg PO WK adalimumab 40 mg/0.8 mL subcutaneous syringe kit 40 mg SUBCUT UD STOP taking 2 weeks before surgery (or as soon as possible if surgery is within 2 weeks) PreserVision AREDS-2 1 tab PO BID methotrexate sodium 2.5 mg tablet 15 mg PO WK glucosamine HCl 3,000 mg PO QDL STOP taking 24 hours before surgery diclofenac sodium 4 gm TOPICAL UD PRN DO NOT take the morning of surgery ascorbic acid (vitamin C) 1,000 mg tablet 1 gm PO QAM cholecalciferol (vitamin D3) 50 mcg (2,000 unit) tablet 2,000 units PO QDL cyanocobalamin (vitamin B-12) 500 mcg tablet 500 mcg PO QDL B-complex with vitamin C [Super B Complex-Vitamin C] 1 tab PO QDL Probiotic 3,000 mmu cells PO QDL folic acid 1 mg tablet 1 mg PO 6XWK furosemide 40 mg tablet 40 mg PO QAM valsartan 320 mg tablet 320 mg PO QAM calcitriol 0.5 mcg capsule 0.5 mcg PO .every other day calcium carbonate 600 mg PO QDL spironolactone 50 mg PO QAM Take morning of surgery With a small sip of water, OTHERWISE NOTHING TO EAT OR DRINK AFTER MIDNIGHT: esomeprazole magnesium [Nexium] 40 mg PO DAILY PRN (if needed) Take evening before surgery atorvastatin 40 mg tablet 40 mg PO HS Basaglar KwikPen U-100 Insulin 28 units SQ HS esomeprazole magnesium [Nexium] 40 mg PO DAILY PRN(if needed) lorazepam 0.5 mg PO HS PRN (if needed) Other Notes If you have any questions please call us at [phone] or [phone] or [phone] or [phone]
--- NOTE | 2020-12-20 15:35 | PAT Medication Instructions ---
Medication Instructions Date of Service December 20, 2020 Home Medications Medication Instructions Recorded folic acid 1 mg tablet 1 mg PO 6XWK #90 tab 02/28/20 leucovorin calcium 5 mg tablet 5 mg PO WK #12 tab 02/28/20 methotrexate sodium 2.5 mg tablet 15 mg PO WK #90 tab 02/28/20 pen needle, diabetic 32 gauge x #100 ea 02/29/20" OneTouch Delica Lancets 33 gauge #300 ea NS 03/04/20 OneTouch Ultra Blue Test Strip #300 ea NS 03/04/20 Wheeled Walker #1 ea 03/13/20 valsartan 320 mg tablet 320 mg PO QAM #90 tab 08/02/20 calcitriol 0.5 mcg capsule 0.5 mcg PO .every other day #90 cap 08/28/20 furosemide 40 mg tablet 40 mg PO QAM #90 tab 11/04/20 atorvastatin 40 mg tablet 40 mg PO HS #90 tab 11/18/20 esomeprazole magnesium 40 mg 40 mg PO DAILY PRN #90 cap 12/09/20 capsule,delayed release ascorbic acid (vitamin C) 1,000 mg tablet 1 gm PO QAM cholecalciferol (vitamin D3) 50 mcg (2,000 unit) tablet 2,000 units PO QDL cyanocobalamin (vitamin B-12) 500 mcg tablet 500 mcg PO QDL B-complex with vitamin C [Super B Complex-Vitamin C] 1 tab PO QDL PreserVision AREDS-2 1 tab PO BID Probiotic 3,000 mmu cells PO QDL diclofenac sodium 4 gm TOPICAL UD PRN folic acid 1 mg tablet 1 mg PO 6XWK leucovorin calcium 5 mg tablet 5 mg PO WK methotrexate sodium 2.5 mg tablet 15 mg PO WK adalimumab 40 mg/0.8 mL subcutaneous syringe kit 40 mg SUBCUT UD valsartan 320 mg tablet 320 mg PO QAM Basaglar KwikPen U-100 Insulin 28 units SQ HS calcitriol 0.5 mcg capsule 0.5 mcg PO .every other day calcium carbonate 600 mg PO QDL glucosamine HCl 3,000 mg PO QDL lorazepam 0.5 mg PO HS PRN spironolactone 50 mg PO QAM furosemide 40 mg tablet 40 mg PO QAM atorvastatin 40 mg tablet 40 mg PO HS esomeprazole magnesium 40 mg capsule,delayed release 40 mg PO DAILY PRN ASK your prescriber and surgeon methotrexate sodium 2.5 mg tablet 15 mg PO WK adalimumab 40 mg/0.8 mL subcutaneous syringe kit 40 mg SUBCUT UD STOP taking 2 weeks before surgery PreserVision AREDS-2 1 tab PO BID glucosamine HCl 3,000 mg PO QDL STOP taking 24 hours before surgery diclofenac sodium 4 gm TOPICAL UD PRN DO NOT take the morning of surgery or in the afternoon on day of surgery: ascorbic acid (vitamin C) 1,000 mg tablet 1 gm PO QAM cholecalciferol (vitamin D3) 50 mcg (2,000 unit) tablet 2,000 units PO QDL cyanocobalamin (vitamin B-12) 500 mcg tablet 500 mcg PO QDL B-complex with vitamin C [Super B Complex-Vitamin C] 1 tab PO QDL Probiotic 3,000 mmu cells PO QDL folic acid 1 mg tablet 1 mg PO 6XWK leucovorin calcium 5 mg tablet 5 mg PO WK valsartan 320 mg tablet 320 mg PO QAM calcitriol 0.5 mcg capsule 0.5 mcg PO .every other day calcium carbonate 600 mg PO QDL spironolactone 50 mg PO QAM furosemide 40 mg tablet 40 mg PO QAM Take morning of surgery With a small sip of water, OTHERWISE NOTHING TO EAT OR DRINK AFTER MIDNIGHT: esomeprazole magnesium 40 mg capsule,delayed release 40 mg PO DAILY PRN (if nee ded) Take evening before surgery Silvanoaglfransisco Caro U-100 Insulin 28 units SQ HS lorazepam 0.5 mg PO HS PRN (if needed) atorvastatin 40 mg tablet 40 mg PO HS Other Notes If you have any questions please call us at [phone] or [phone] or [phone] or [phone]
--- NOTE | 2020-12-24 10:21 | Anesthesiology Consultation ---
Date of Service December 24, 2020 Assessment & Plan (1) Encounter for pre-operative examination: - COVID screening: Per assessment on 12/24: Travel screen negative, no known COVID-19 positive contacts or current COVID-19 related symptoms. Patient fully vaccinated. Surgeon arranging preop COVID testing. Awaiting results. - Check BSG AM DOS - "[employer]" > hTao Thornton (case management) made aware of patient's post-op requests - Cardiology office visit: 03/08/20: Seen by cardiology prior to 03/12/20 Right TKA > "Based on her normal LV systolic function without regional wall motion abnormalities on Echocardiogram today and her lack of limiting cardiopulmonary symptoms -- patient is an acceptable surgical risk to proceed with surgery as scheduled provided she take her usual dose of Amlodipine 10 mg the night before surgery and her usual dose of Metoprolol Succinate ER 25 mg the morning of surgery. There is no need for further cardiac workup at this time" - S/P Right TKA: 03/12/20: SAB at L3/L4 (x1 attempt) + PNB at [facility] - LUE limb restriction s/p lymph node dissection Chart Review Chart Review: Acceptable Risk for Surgery and Patient seen in Pre Admission Testing Teaching & Discussion Pre-Anesthesia Teaching/Discussion Notes: Instructed NPO after midnight before surgery,except medications with 15 cc of water. Medication instructions provided according to the PAT guidelines. History Surgery Operation Date: 01/14/21 07:30 Proposed Procedures p Left Total Knee Arthroplasty - Audi Barrientos, Height/Weight Height: 5 ft 7 in Weight: 90.4 kg Allergies Allergy/AdvReac Type Severity Reaction Status Date / Time Cipro Allergy Unknown NOT Verified 07/03/14 08:49 LEVAQUIN hydrochlorothiazide Allergy Unknown Per Verified 12/24/20 11:34 records- Unknown reaction Sulfa (Sulfonamide Allergy Unknown Hives Verified 12/24/20 10:12 Antibiotics) ciprofloxacin AdvReac Unknown Diarrhea Verified 12/24/20 10:35 clavulanic acid AdvReac Unknown Diarrhea Verified 12/24/20 10:35 [From Augmentin] lisinopril AdvReac Unknown Cough Verified 12/24/20 10:35 vaccine adjuvant system, AdvReac Unknown Cannot Verified 12/24/20 10:12 AS01B liposomal take d/t [From Shingrix (PF)] interaction with Humira (per pt) varicella-zoster virus AdvReac Unknown Cannot Verified 12/24/20 10:12 glycoprotein E, recombinant take d/t [From Shingrix (PF)] interaction with Humira (per pt) Medications Home Medications Medication Instructions Recorded Confirmed Last Taken ascorbic acid (vitamin C) 1,000 mg 1 gm PO QAM tab 06/21/19 12/10/20 3 Days Ago tablet ~03/09/20 cholecalciferol (vitamin D3) 50 2,000 units PO QDL tab 06/21/19 12/10/20 3 Days Ago mcg (2,000 unit) tablet ~03/09/20 cyanocobalamin (vitamin B-12) 500 500 mcg PO QDL tab 06/21/19 12/10/20 3 Days Ago mcg tablet ~03/09/20 B-complex with vitamin C [Super B 1 tab PO QDL 02/27/20 12/10/20 3 Days Ago Complex-Vitamin C] ~03/09/20 PreserVision AREDS-2 1 tab PO BID 02/27/20 12/10/20 03/11/20 09:00 Probiotic 3,000 mmu cells PO QDL 02/27/20 12/10/20 03/11/20 09:00 diclofenac sodium 4 gm TOPICAL UD PRN 02/27/20 12/10/20 03/11/20 09:00 folic acid 1 mg tablet 1 mg PO 6XWK #90 tab 02/28/20 12/10/20 03/10/20 21:00 leucovorin calcium 5 mg tablet 5 mg PO WK #12 tab 02/28/20 12/10/20 03/10/20 21:00 methotrexate sodium 2.5 mg tablet 15 mg PO WK #90 tab 02/28/20 12/10/20 03/09/20 21:00 pen needle, diabetic 32 gauge x #100 ea 02/29/20 10/14/20 Unknown " OneTouch Delica Lancets 33 gauge #300 ea NS 03/04/20 10/14/20 Unknown OneTouch Ultra Blue Test Strip #300 ea NS 03/04/20 10/14/20 Unknown Wheeled Walker #1 ea 03/13/20 10/14/20 Unknown adalimumab 40 mg/0.8 mL 40 mg SUBCUT UD ml 06/24/20 12/10/20 Unknown subcutaneous syringe kit valsartan 320 mg tablet 320 mg PO QAM #90 tab 08/02/20 12/10/20 Unknown Silvanoaglfransisco Caro U-100 Insulin 28 units SQ HS 08/28/20 12/10/20 Unknown calcitriol 0.5 mcg capsule 0.5 mcg PO .every other day #90 cap 08/28/20 12/10/20 Unknown calcium carbonate 600 mg PO QDL 08/28/20 12/10/20 Unknown glucosamine HCl 3,000 mg PO QDL 08/28/20 12/10/20 Unknown lorazepam 0.5 mg PO HS PRN 08/28/20 12/10/20 Unknown spironolactone 50 mg PO QAM 08/28/20 12/10/20 Unknown furosemide 40 mg tablet 40 mg PO QAM #90 tab 11/04/20 12/10/20 Unknown atorvastatin 40 mg tablet 40 mg PO HS #90 tab 11/18/20 12/10/20 Unknown esomeprazole magnesium 40 mg 40 mg PO DAILY PRN #90 cap 12/09/20 12/10/20 Unknown capsule,delayed release clindamycin HCl 300 mg capsule 600 mg PO ONCE 1 Days #2 cap 12/24/20 12/24/20 Unknown diclofenac sodium 1 % topical gel 4 g TOPICAL QID PRN #150 g 12/24/20 12/24/20 Unknown Past Medical History Medical History Acid reflux rare Anxiety Diabetes type 2, controlled IDDM Diverticular disease Dyslipidemia Hiatal hernia History of breast cancer Left (several years ago) > radiation History of hyperparathyroidism Hx of squamous cell carcinoma of skin with excision Hypertension Osteoarthritis Rheumatoid arthritis Exercise / Class Metabolic Activity II 4-5 Yardwork/Stairs/Walk up hill (one flight of stairs (no chest pain, no sob)) Past Family History Family History Father History of lung cancer Sister History of breast cancer Other Family history of diabetes mellitus in father No pertinent family history Denies family history of Ovarian cancer Breast cancer Colorectal cancer Past Surgical History Surgical History H/O breast surgery Left + LND H/O Mohs micrographic surgery for skin cancer History of appendectomy History of bilateral oophorectomy History of colonoscopy History of endoscopy History of hysterectomy History of left cataract surgery History of right cataract surgery History of total right knee replacement Right TKA: 03/12/20: SAB at L3/L4 (x1 attempt) + PNB at [facility] S/P subtotal parathyroidectomy [place] teeth extracted Past Anesthesia History No Hx of Anesthesia Complications (except remote hx PONV) and No Family Hx of Anesthesia Complications History of PONV History of PONV (remote hx) and Hx of Motion Sickness (remote hx) Social History Smoking Status: Never smoker Do You Dip or Chew Tobacco: No Hx Alcohol Use: Yes Alcohol type: wine alcohol intake frequency: holidays/special occasions only Hx Substance Use: No substance use type: does not use Review of Systems Patient denies chest pain, shortness of breath, dyspnea on exertion, fever, chills, cough, wheezing, palpitations. Physical Exam Vital Signs VITALS BP 126/79 P 67 TEMP 98.7 SP02 95%RA RESP 16 PHYSICAL Full cervical extension range of motion. Full TMJ range of motion. TMD 3 finger breaths Mallampati Score 3 Dentition: intact, several crowns Lungs: clear throughout to auscultation Cardiac: regular rate and rhythm, no murmurs noted Spine: normal Carotid arteries: negative bruit Extremities: no edema Testing Laboratory Results PT 9.8 Seconds (9.0-12.0) 12/24/20 10:54 INR 1.0 (0.9-1.1) 12/24/20 10:54 APTT 23.2 Seconds (21.0-31.0) 12/24/20 10:54 Blood Type A Negative 12/24/20 10:54 Antibody Screen NEGATIVE 12/24/20 10:54 11/29/20 WBC 8.11 H/H 13.6/41.0 PLATELETS 360 SODIUM 138 POTASSIUM 3.7 CHLORIDE 101 CO2 33 BUN 28 CREATININE 1.32 GLUCOSE 125 HGBA1C 6.3% Electrocardiogram Date: 02/28/20 SB at 58bpm. RsR' (v1)- probable normal variant. Inferior infarct (age undetermined). PCP reviewed EKG and referred patient to cardiology for further evaluation Chest X-Ray Date: 03/05/20 No acute findings. Mild cardiomegaly without evidence for pulmonary edema. Mild elevation of the left hemidiaphragm. Echocardiogram Date: 03/08/20 EF 60 to 65%. No regional wall motion abnormality. Mild concentric LVH. Mild MR/TR. Stress Test Date: 07/24/20 Type: DSE Negative dobutamine stress echo/dobutamine stress ECG for myocardial ischemia 114% MPHR. LVEF 60 to 65%.
[2020-12-24 11:22] LABS: Partial Thromboplastin Ratio 0.9; Partial Thromboplastin Time 23.2 Seconds (21.0-31.0); Prothrombin Time 9.8 Seconds (9.0-12.0)
--- NOTE | 2021-01-09 07:24 | History & Physical Report ---
Date of Service January 09, 2021 Assessment & Plan (1) Osteoarthritis of left knee: We will proceed with a left total knee arthroplasty. Postoperatively she will be started on aspirin for DVT prophylaxis and kept overnight in the hospital for postoperative medical management. She plans to use energy physical therapy upon discharge. History of Present Illness Chief Complaint: Osteoarthritis of the left knee. Primary Care Provider: Bg Morgan MD Vania is a pleasant 85-year-old female who I did a right knee replacement on in February 2020. She is done very well with that. Unfortunately she has been dealing with a lot of left knee pain. X-rays and clinical examination have been diagnostic for advanced osteoarthritis of the left knee. After failing conservative treatment, she has elected proceed with a left total knee arthroplasty.. Allergies Allergy/AdvReac Type Severity Reaction Status Date / Time Cipro Allergy Unknown NOT Verified 07/03/14 08:49 LEVAQUIN hydrochlorothiazide Allergy Unknown Per Verified 12/24/20 11:34 records- Unknown reaction Sulfa (Sulfonamide Allergy Unknown Hives Verified 12/24/20 10:12 Antibiotics) ciprofloxacin AdvReac Unknown Diarrhea Verified 12/24/20 10:35 clavulanic acid AdvReac Unknown Diarrhea Verified 12/24/20 10:35 [From Augmentin] lisinopril AdvReac Unknown Cough Verified 12/24/20 10:35 vaccine adjuvant system, AdvReac Unknown Cannot Verified 12/24/20 10:12 AS01B liposomal take d/t [From Shingrix (PF)] interaction with Humira (per pt) varicella-zoster virus AdvReac Unknown Cannot Verified 12/24/20 10:12 glycoprotein E, recombinant take d/t [From Shingrix (PF)] interaction with Humira (per pt) Home Medications Medication Instructions Recorded Confirmed Type ascorbic acid (vitamin C) 1,000 mg 1 gm PO QAM tab 06/21/19 12/10/20 History tablet cholecalciferol (vitamin D3) 50 2,000 units PO QDL tab 06/21/19 12/10/20 H istory mcg (2,000 unit) tablet cyanocobalamin (vitamin B-12) 500 500 mcg PO QDL tab 06/21/19 12/10/20 History mcg tablet B-complex with vitamin C [Super B 1 tab PO QDL 02/27/20 12/10/20 History Complex-Vitamin C] PreserVision AREDS-2 1 tab PO BID 02/27/20 12/10/20 History Probiotic 3,000 mmu cells PO QDL 02/27/20 12/10/20 History diclofenac sodium 4 gm TOPICAL UD PRN 02/27/20 12/10/20 History folic acid 1 mg tablet 1 mg PO 6XWK #90 tab 02/28/20 12/10/20 Rx leucovorin calcium 5 mg tablet 5 mg PO WK #12 tab 02/28/20 12/10/20 Rx methotrexate sodium 2.5 mg tablet 15 mg PO WK #90 tab 02/28/20 12/10/20 Rx pen needle, diabetic 32 gauge x #100 ea 02/29/20 10/14/20 Rx 5/32" OneTouch Delica Lancets 33 gauge #300 ea NS 03/04/20 10/14/20 Rx OneTouch Ultra Blue Test Strip #300 ea NS 03/04/20 10/14/20 Rx Wheeled Walker #1 ea 03/13/20 10/14/20 Rx adalimumab 40 mg/0.8 mL 40 mg SUBCUT UD ml 06/24/20 12/10/20 History subcutaneous syringe kit Silvanolaurenfransisco CauseyAbraham U-100 Insulin 28 units SQ HS 08/28/20 12/10/20 History calcitriol 0.5 mcg capsule 0.5 mcg PO .every other day #90 cap 08/28/20 12/10/20 Rx calcium carbonate 600 mg PO QDL 08/28/20 12/10/20 History glucosamine HCl 3,000 mg PO QDL 08/28/20 12/10/20 History lorazepam 0.5 mg PO HS PRN 08/28/20 12/10/20 History spironolactone 50 mg PO QAM 08/28/20 12/10/20 History furosemide 40 mg tablet 40 mg PO QAM #90 tab 11/04/20 12/10/20 Rx atorvastatin 40 mg tablet 40 mg PO HS #90 tab 11/18/20 12/10/20 Rx esomeprazole magnesium 40 mg 40 mg PO DAILY PRN #90 cap 12/09/20 12/10/20 Rx capsule,delayed release clindamycin HCl 300 mg capsule 600 mg PO ONCE 1 Days #2 cap 12/24/20 12/24/20 Rx diclofenac sodium 1 % topical gel 4 g TOPICAL QID PRN #150 g 12/24/20 12/24/20 Rx valsartan 320 mg tablet 320 mg PO QAM #90 tab 12/30/20 Rx Past Med/Surg History Medical History Acid reflux rare Anxiety Diabetes type 2, controlled IDDM Diverticular disease Dyslipidemia Hiatal hernia History of breast cancer Left (several years ago) > radiation History of hyperparathyroidism Hx of squamous cell carcinoma of skin with excision Hypertension Osteoarthritis Rheumatoid arthritis Surgical History H/O breast surgery Left + LND H/O Mohs micrographic surgery for skin cancer History of appendectomy History of bilateral oophorectomy History of colonoscopy History of endoscopy History of hysterectomy History of left cataract surgery History of right cataract surgery History of total right knee replacement Right TKA: 03/12/20: SAB at L3/L4 (x1 attempt) + PNB at [facility] S/P subtotal parathyroidectomy [place] teeth extracted Family History Father History of lung cancer Sister History of breast cancer Other Family history of diabetes mellitus in father No pertinent family history Denies family history of Ovarian cancer Breast cancer Colorectal cancer Social History Smoking Status: Never smoker Second Hand Exposure: No; Hx Alcohol Use: Yes Alcohol type: wine Hx Substance Use: No Preferred Language: Berm[place] Communication Ability: Effective Visual Impairment: No Limitations Hearing Ability: Normal Med Spec Required: No Beliefs That Will Affect Care: None marital status: Current Living Situation: Spouse current occupational status: retired 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 Physical Exam On physical examination of the left knee, she ambulates independently. She has range of motion of 0 to 120 degrees. She has no instability. She has pain over the distal medial femoral condyle and over the medial joint line.. Constitutional WD/WN, vitals as above Eyes PERRL, conjunctivae normal, anicteric sclerae ENMT external ear and nose normal, oropharynx normal Neck trachea midline, no thyromegaly Respiratory normal respiratory effort Cardiovascular RRR, no murmur, no edema Gastrointestinal (Abdomen) normal bowel sounds, soft, nontender, no hepatosplenomegaly Psychiatric A+Ox3, euthymic affect Results & Data Results & Data Laboratory Results . Diagnostic Findings X-rays of the left knee do show advanced osteoarthritis with joint space narrowing, osteophyte formation, and [id number] articulation.. PG Care Time/CCT Total # of Minutes Spent Total Time Spent with Patient: Total time spent is greater than 50% in coordination of care (as documented) at patient's floor/unit and/or counseling patient: Coding Level of Care Code None Diagnoses Osteoarthritis of left knee M17.12
[2021-01-14] MEDS ORDERED: LR 500ML BOLUS, THEN 15ML/HR IV SCH (06:00)
[2021-01-14] MEDS ORDERED: TRANEXAMIC ACID 1,000 MG **IV Intra-op IV SCH (06:00)
[2021-01-14] MEDS ORDERED: GABAPENTIN 300 MG CAP PO SCH (06:00)
[2021-01-14] MEDS ORDERED: ceFAZolin 2000MG 2,000 MG/15 ML SYR IV SCH (06:00)
[2021-01-14] MEDS ORDERED: ROPIVACAINE 0.5% HCL/PF 150 MG, BUPIVACAINE 0.75% MPF 20 ML, EPINEPHrine 30MG/30ML (OR ... INSTIL SCH (06:00)
[2021-01-14] MEDS ORDERED: dexAMETHasone 4 MG TAB PO SCH (06:00)
[2021-01-14] MEDS ORDERED: FAMOTIDINE 20 MG TAB PO SCH (06:00)
[2021-01-14] MEDS ORDERED: TRANEXAMIC ACID 1,000 MG **IV Pre-op IV SCH (06:00)
[2021-01-14] MEDS ORDERED: ACETAMINOPHEN 500 MG TAB PO SCH (06:00)
[2021-01-14] MEDS ORDERED: LR 15ML/HR IV SCH (06:00)
[2021-01-14] MEDS ORDERED: BUPIVACAINE 0.5 % 5 MG/1 ML PF 10ML VIAL ONE (06:27)
[2021-01-14] MEDS ORDERED: ROPIVACAINE 0.5% 5 MG/ML 30 ML VIAL ONE (06:27)
[2021-01-14] MEDS ORDERED: MIDAZOLAM HCL 1 MG/ML 2ML VIAL ONE (06:29)
[2021-01-14] MEDS ORDERED: PROPOFOL IV EMULSION 10 MG/ML 20 ML VIAL IV ONE (06:29)
--- NOTE | 2021-01-14 06:32 | History & Physical Bridge Note ---
Date of Service January 14, 2021 History & Physical Bridge Note I have examined the patient, reviewed the History & Physical and in the interval since the performance of the History & Physical I have noted the following changes of clinical significance: no changes noted
[2021-01-14] MEDS ORDERED: ORTHO JOINT ANESTHETIC ONE (06:58)
[2021-01-14] MEDS ORDERED: ePHEDrine sulfate 50 MG/ML AMP IV PRN (07:19)
[2021-01-14] MEDS ORDERED: HYDROmorphone INJ 2 MG/ML SYR/VIAL IV PRN (07:19)
[2021-01-14] MEDS ORDERED: ATROPINE SULFATE 0.1 MG/ML 10ML SYR IV PRN (07:19)
[2021-01-14] MEDS ORDERED: fentaNYL citrate 100 MCG/2 ML VIAL IV PRN (07:19)
[2021-01-14] MEDS ORDERED: ePHEDrine sulfate 50 MG/ML AMP ONE (07:58)
[2021-01-14] MEDS ORDERED: PHENYLEPHRINE HCL 10 MG/ML VIAL ONE (07:58)
--- NOTE | 2021-01-14 08:37 | Operative Report ---
PG Post Operative Report Pre & Post Diagnosis Operation Date: 01/14/21 07:15 Pre-Op Diagnosis: Degenerative Joint Disease, Left Knee Post-Op Diagnosis: Degenerative Joint Disease, Left Knee I identified the patient and participated in the time-out.: Yes Procedure Operation Date: 01/14/21 07:15 Actual Procedures p Left Total Knee Arthroplasty, Cemented(Left) - Audi Barrientos DO Surgeon Audi Barrientos DO Kettle [employer] Audi Guzman PAC Estimated Blood Loss 10 Findings Consistent with Post-Op Diagnosis Specimens Left femoral and tibial bone Complications none Disposition Disposition: Recovery Room Indications Vania is a pleasant 85-year-old female who is been doing with chronic increasing left knee pain. X-rays and clinical examination were diagnostic for advanced osteoarthritis of the left knee. After failing conservative treatment, she elected proceed with a left total knee arthroplasty. Description of Procedure Implants used: I used a David Persona total knee arthroplasty system with a size 9 narrow femur, F tibia, 32 patella, and a size 10 medial congruent polyethylene bearing. All components were cemented in place with Simplex HV cement. Vania arrived [facility] for the above procedure. She was seen in the preoperative holding area and the operative extremity was identified and signed. She was given a preoperative antibiotic, TXA, a spinal anesthetic and an adductor nerve block. She was taken back to the operating room and laid on the table in supine position. She was given basic sedation. The operative knee was then prepped and draped in sterile fashion. A timeout was done, and the patient and the operative extremity was properly identified. A midline incision was made directly over the patella. Dissection was taken down to the extensor mechanism. A subvastus arthrotomy was used. The medial retinaculum was released and the fat pad was mostly excised. The knee was flexed and the ACL, PCL, and meniscus were removed. A drill was sent down the center of the femoral canal followed by an intramedullary ravi. Off that ravi a distal femoral cutting block was placed. 9 mm was resected off the distal femur at 5 of valgus. A posterior referencing AP sizing guide was then placed on the distal femur. The femur measured to be a size 9 narrow. 2 drill holes were placed in 3 of external rotation. A 4-in-1 cutting block was then impacted into place. Anterior, posterior, and chamfer cuts were then made. The proximal tibia was then exposed. An external tibial alignment guide was placed. A tibial cut guide was then anchored in place and the proximal tibia was then resected. The posterior aspect of the knee was then opened up and any additional meniscus fragments and osteophytes were removed. The tibia measured to be a size F. The tibial plate was then placed in the appropriate rotation and the tibia was drilled and punched. Trial components were then placed. I used a size 10 medial congruent polyethylene insert. The knee was brought through a full range of motion and felt to be stable. The peg holes for the femoral component were then drilled. The patella was then everted and 9 mm was resected off the posterior aspect of the patella. The patella measured to be a size 32. 3 peg holes were then drilled. A trial patella was placed. The knee was once again brought through a full range of motion and felt to be stable. Trial components were then removed. The surrounding soft tissues were injected with 100 cc of an orthopedic pain control cocktail. All components were then cemented into place with Simplex HV cement. The final polyethylene insert was then snapped into place. Once cement was dry the tourniquet was deflated. Hemostasis was obtained. A dilute betadyne lavage was then done for 3 minutes. The joint was then irrigated with normal saline solution. The subvastus arthrotomy was then closed with #1 Vicryl suture. The skin was closed with 2-0 Vicryl, 3-0V lock suture, and gary. A Silverlon and a soft compressive dressing were placed. She was then transferred to a hospital bed and taken to the postanesthesia care unit in stable condition. She tolerated the procedure well. Audi Guzman PA-C, was present for the entire procedure. He was critical for patient positioning, prepping, draping, retraction exposure, wound closure and application of sterile dressing. I attest to the content of the Intraoperative Record and any orders documented therein. Any exceptions are noted below.
--- NOTE | 2021-01-14 09:25 | XRay Report ---
XR knee LT 1 or 2V routine HISTORY: 85 years-old Female Surgical Post Op left knee total joint arthroplasty COMPARISON: None TECHNIQUE: 2 views of the left knee FINDINGS: Left knee total joint arthroplasty and patella resurfacing. Anterior midline skin gary are noted a long with expected postoperative soft tissue swelling and deep tissue air. No acute fracture or unexp ected opaque foreign body. IMPRESSION: Left knee total joint arthroplasty with expected postoperative changes. ACT 112: Negative or not required by law. The above report was generated using voice recognition software. It may contain grammatical, syntax o r spelling errors. Electronically signed by: Gary Estevez M.D. 01/14/2021 9:23 AM
--- NOTE | 2021-01-14 10:10 | Anesthesiology Progress Note ---
Date of Service January 14, 2021 Anesthesia Post Procedure Vital Signs Vital Signs: Temp Pulse Pulse Resp BP Pulse Ox 01/14/21 09:55 72 18 122/64 98 01/14/21 09:45 36.6 C 59 L 15 115/60 98 01/14/21 09:35 61 16 113/54 L 96 01/14/21 09:25 66 16 114/57 L 93 01/14/21 09:15 59 L 20 110/61 94 01/14/21 09:05 65 15 118/62 94 01/14/21 08:55 65 20 118/61 95 01/14/21 08:47 36.6 C 68 18 116/59 L 97 01/14/21 05:56 36.5 C 70 18 143/75 H 96 Transfer of Care Handoff Completed per policy Notes Mental Status: alert / awake / arousable and participated in evaluation Patient Amnestic to Procedure: Yes Nausea / Vomiting: adequately controlled Pain: adequately controlled Airway Patency, RR, SpO2: stable & adequate BP & HR: stable & adequate Hydration State: stable & adequate Neuraxial Anesthesia: was administered and sensory block is resolving Anesthetic Complications: no major complications apparent
[2021-01-14] MEDS ORDERED: METOCLOPRAMIDE HCL INJ 5 MG/ML 2 ML VIAL IV PRN (10:19)
[2021-01-14] MEDS ORDERED: NALOXONE HCL 0.4 MG/1 ML VIAL/CARP IV PRN (10:19)
[2021-01-14] MEDS ORDERED: MAGNESIUM HYDROXIDE SUSP 30 ML UDC PO PRN (10:19)
[2021-01-14] MEDS ORDERED: SODIUM CHLORIDE 0.9% 1000ML 1,000 ML IV SCH (10:19)
[2021-01-14] MEDS ORDERED: bisacodyL 10 MG SUPP PR PRN (10:19)
[2021-01-14] MEDS ORDERED: HYDROmorphone INJ 0.5 MG/0.5 ML SYR IV PRN (10:19)
[2021-01-14] MEDS ORDERED: ONDANSETRON INJ 2 MG/ML 2 ML VIAL IV PRN (10:19)
[2021-01-14] MEDS ORDERED: oxyCODONE HCL IR 5 MG TAB (IMMEDIATE RELEASE) PO PRN (10:19)
[2021-01-14] MEDS ORDERED: PHARMACY GLYCEMIC MGMT CONSULT PRN (10:33)
[2021-01-14] MEDS: FUROSEMIDE 40 MG TAB PO SCH (11:00)
[2021-01-14] MEDS: ASPIRIN 81 MG ECTAB PO SCH ×2 (11:00→21:21)
[2021-01-14] MEDS: MULTIVITAMIN TAB PO SCH (11:00)
[2021-01-14] MEDS: VALSARTAN 80 MG TAB PO SCH (11:01)
[2021-01-14] MEDS ORDERED: ADVANCED PROBIOTIC 1250 MG CAPSULE PO SCH (11:30)
[2021-01-14] MEDS: DOCUSATE SODIUM 100 MG CAP PO SCH ×2 (11:38→20:18)
[2021-01-14] MEDS: SPIRONOLACTONE 25 MG TAB PO SCH (11:38)
[2021-01-14] MEDS: KETOROLAC TROMETHAMINE 15 MG/ML VIAL IV SCH ×3 (11:39→23:20)
[2021-01-14] MEDS: INSULIN ASPART 100 UNITS/ML 3 ML PEN SC SCH ×5 (13:21→23:30)
[2021-01-14] MEDS: ACETAMINOPHEN 500 MG TAB PO SCH ×2 (13:21→20:17)
--- NOTE | 2021-01-14 15:19 | Pharmacy Report ---
Pharmacy Glycemic Short Note 2 - Date of Service January 14, 2021 - Glycemic Short BSG Results (Last 24 hours): 01/14/21 01/14/21 01/14/21 05:41 08:55 11:36 POC Glucose 104 H 117 H 133 H OUTPATIENT ANTIDIABETIC REGIMEN: * Basaglar 28 units QPM * A1c 6.3% 01/14 ASSESSMENT: * POD #0 Left Total knee arthroplasty, received 8 mg of dexamethasone PO, topical orthomix * Patient's BSGs have been within goal range, weight based dosing is slightly more aggressive than stressing patient's home total daily dose (28 units). Will start with weight based dosing between stress of 2 and 3 since the patient did receive some dexamethasone. Patient received her home dose of lantus last PM, will schedule lantus scale 20-30 units as patient is also receiving novolog. PLAN FOR INPATIENT GLYCEMIC CONTROL: * Hold outpatient oral diabetes medications * Basal insulin * Lantus 20-30 units SQ HS * Bolus insulin * NovoLog per scale ACHS or Q6hrs while NPO * Goal Range: Low 110 mg/dL - High [140] mg/dL * Correction Factor: 25 mg/dL/unit * Nutritional / Prandial insulin per carb ratio of 1 unit per 8 grams CHO consumed PLAN FOR DISCHARGE: * tbd
[2021-01-14] MEDS: ceFAZolin 2000MG 2,000 MG/15 ML SYR IV SCH ×2 (16:18→23:20)
[2021-01-14] MEDS ORDERED: CEROVITE ADV FORMULA TAB PO SCH (21:00)
[2021-01-14] MEDS ORDERED: INSULIN GLARGINE SOLOSTAR 100 UNITS/ML 3 ML PEN SC ONE (21:00)
[2021-01-14] MEDS ORDERED: ATORVASTATIN 40 MG TAB PO SCH (21:00)
[2021-01-14] MEDS ORDERED: SENNA 8.6 MG TAB PO SCH (21:00)
[2021-01-14] MEDS ORDERED: LANTUS PER UNIT CHARGE SC ONE (21:15)
[2021-01-14] MEDS: LORazepam 1 MG TAB PO PRN ×2 (21:29→23:31)
[2021-01-15] MEDS: INSULIN ASPART 100 UNITS/ML 3 ML PEN SC SCH ×2 (04:06→08:35)
[2021-01-15] MEDS: KETOROLAC TROMETHAMINE 15 MG/ML VIAL IV SCH (06:36)
[2021-01-15] MEDS: ACETAMINOPHEN 500 MG TAB PO SCH (06:36)
--- NOTE | 2021-01-15 06:42 | Orthopedic Progress Note ---
Date of Service January 15, 2021 Assessment & Plan (1) Status post left knee replacement: Overall she is doing fairly well. She denies any much pain in the left knee. She was up and ambulating into the hallways yesterday. She will be seen by physical therapy today for ambulation and range of motion exercises. The nursing staff can change the dressing after physical therapy. She is on aspirin for DVT prophylaxis. She can be discharged home later today. She will follow- up with orthopedics in 2 weeks. Srinivasan Caro was seen and examined at bedside this morning. Overall she is doing well. She did not get much sleep last night due to the SCDs and the insulin checks. She is not having much pain in the left knee. She has no complaints.. Review of Systems All systems reviewed & are unremarkable except as noted in HPI & below. Physical Exam On physical examination of the left knee, the dressing is clean and dry. Her leg is out full extension. She has active dorsiflexion plantarflexion of her left ankle.. Results & Data Results & Data Laboratory Results . Diagnostic Findings Postoperative x-rays of the left knee show the prosthesis to be in anatomic alignment without any evidence of fracture, dislocation, or loosening. PG Care Time/CCT Total # of Minutes Spent Total Time Spent with Patient: Total time spent is greater than 50% in coordination of care (as documented) at patient's floor/unit and/or counseling patient: Coding Level of Care Code 35000 Post Operative Follow-Up Diagnoses Status post left knee replacement Z96.652
--- NOTE | 2021-01-15 06:44 | Discharge Summary ---
Date of Service January 15, 2021 Admission HPI (Per Admitting) Vania is a pleasant 85-year-old female who I did a right knee replacement on in February 2020. She is done very well with that. Unfortunately she has been dealing with a lot of left knee pain. X-rays and clinical examination have been diagnostic for advanced osteoarthritis of the left knee. After failing conservative treatment, she has elected proceed with a left total knee arthroplasty.. Admission Exam (Per Admitting) On physical examination of the left knee, she ambulates independently. She has range of motion of 0 to 120 degrees. She has no instability. She has pain over the distal medial femoral condyle and over the medial joint line.. Principal Diagnosis Same as "Discharge Diagnosis" noted below under Discharge Instructions. Discharge Exam On physical examination of the left knee, the dressing is clean and dry. Her leg is out full extension. She has active dorsiflexion plantarflexion of her left ankle.. Discharge Data Procedures Performed Operation Date: 01/14/21 07:15 Actual Procedures p Left Total Knee Arthroplasty, Cemented(Left) - Audi Barrientos DO Ordered Studies 01/14/21 05:00 US - OR guided needle placemen Routine Hospital Course (1) Status post left knee replacement: On January 14, 2021 Vania arrived at [facility] and underwent a left total knee arthroplasty without complication. She had a spinal anesthetic. Postoperatively she was started on aspirin for DVT prophylaxis and transferred to the general orthopedic floors. Her hospital course was uneventful. On postop day #1 her vital signs were stable and her pain was well controlled. She was able to participate well with physical therapy doing ambulation and range of motion exercises. She was then discharged home. She will follow-up with orthopedics in 2 weeks. PG Care Time/CCT Total # of Minutes Spent Total Time Spent with Patient: Total time spent is greater than 50% in coordination of care (as documented) at patient's floor/unit and/or counseling patient: Discharge Plan Discharge Items Patient Disposition: Home - Home Health Services Reason For Visit: Degenerative Joint Disease, Left Knee Discharge Diagnosis: Left knee replacement Activity: As commented below Non-emergency contact: Surgeon Call non-emergency contact if: your wound has increased redness and your wound has increased drainage Follow-up/Referrals: Bg Morgan MD [Primary Care Provider] - Diet: Regular Addtl Attending Provider Instructions: Activity and Therapy Recommendations: * If you are using [facility] then therapy will be provided at your home until they feel you have accomplished all of your goals. * If you are using [facility] then Physical Therapy will be provided until they feel you are ready to start Outpatient Physical Therapy. * If you are not using home therapy then Outpatient Physical Therapy should start about 3-5 days from your day of surgery. Therapy will last about 6-10 weeks * It is important not to put a pillow under your knee when you are relaxing or sleeping. It is just as important to make sure you are getting your knee perfectly straight as it is to regain your knee bend. * You were shown a series of exercises in the hospital. Do these exercises three times each day including the exercises you were shown in physical therapy. * Get up and walk several times each day. For the first four weeks, try not to stand or walk for more than one hour at a time. If you do stand or walk for more than one hour, you will not hurt anything, but your leg will likely swell. * As you feel comfortable, you may change from the walker or crutches to a cane and then to independent walking. Medications: * Narcotic You will likely be sent home from the hospital with a prescription for the narcotic pain medication that worked best throughout your stay. * Aspirin Most patients will be required to take Aspirin 81mg twice a day for 6 weeks after surgery. This is obtained [id number] and a prescription is not necessary. * Other medications may be prescribed for specific circumstances. If you have any questions, please call the office at . * Resume previous home medications unless otherwise instructed TEDs/Elastic Stockings: The white elastic stockings help limit swelling and prevent blood clots from forming in your legs.~ The more you wear them, the more they work. Wear them for six weeks. Dressing Care: Daily dry dressing changes as needed If the incision is not draining then you may leave the gary open to air. If there is a little bit of drainage or if the gary are getting stuck on your clothing then cover the incision with a dry dressing. The gary will be removed at your 2 week follow-up appointment. Showering: You may shower 5 days from the day of surgery. You may shower with the gary exposed. Let soapy water run over the gary and pat them dry. Do not scrub or soak the incision. Things To Watch For: * Drainage from the incision site that occurs more than one week after your surgery. * Increased redness at the incision site. * Fever above 102 degrees Fahrenheit. * Unusual chest pain or shortness of breath. * Call [facility] at with any of the above problems Follow-Up Visit: Follow-up with Dr. Barrientos's PA (Audi Guzman) 2-3 weeks after your day of surgery. He will remove your gary and answer any questions. If you have any additional questions or concerns, Dr Barrientos is usually in the office at the same time and will be available An appointment was probably scheduled when you signed-up for surgery in the office. If you have any questions call Office Instructions: More detailed instructions as well as Frequently Asked Questions were provided in a folder by our office when you signed-up for surgery. Please review these instructions when you get home. If you have any further questions or concerns, please feel free to call the office at [phone] Pending Studies at Discharge: No Stand-Alone Forms: [facility] Sm[facility] Cessation Medications and DC Order Prescriptions: New oxycodone 5 mg Tablet 5 mg PO Q4H PRN (Reason: pain) Qty: 60 RF: 0 aspirin 81 mg Tablet,Delayed Release (Dr/Ec) 81 mg PO BID 42 Days Qty: 0 RF: 0 Continued (DME) pen needle, diabetic [BD Ultra-Fine Darline Pen Needle] 32 gauge x 5/32" needle See Rx Instructions .ROUTE .MEDSUPPLY Qty: 100 RF: 3 (DME) lancets [OneTouch Delica Lancets] 33 gauge misc See Rx Instructions .ROUTE .MEDSUPPLY Qty: 300 RF: 3 (DME) blood sugar diagnostic [OneTouch Ultra Blue Test Strip] Strip See Rx Instructions .ROUTE .MEDSUPPLY Qty: 300 RF: 3 (DME) Wheeled Walker Misc See Rx Instructions .ROUTE .MEDSUPPLY Qty: 1 RF: 0 calcitriol 0.5 mcg capsule 0.5 mcg PO .every other day Qty: 90 RF: 1 furosemide 40 mg tablet 40 mg PO QAM Qty: 90 RF: 3 atorvastatin 40 mg tablet 40 mg PO HS Qty: 90 RF: 1 esomeprazole magnesium [Nexium] 40 mg capsule,delayed release(DR/EC) 40 mg PO DAILY PRN (Reason: gerd) Qty: 90 RF: 3 valsartan 320 mg tablet 320 mg PO QAM Qty: 90 RF: 3 methotrexate sodium 2.5 mg tablet 15 mg PO WK Qty: 90 RF: 1 leucovorin calcium 5 mg tablet 5 mg PO WK Qty: 12 RF: 0 folic acid 1 mg tablet 1 mg PO 6XWK Qty: 90 RF: 3 adalimumab 40 mg/0.8 mL syringe kit 40 mg subcut UD RF: 0 ascorbic acid (vitamin C) 1,000 mg tablet 1 gm PO QAM RF: 0 cyanocobalamin (vitamin B-12) 500 mcg tablet 500 mcg PO QDL RF: 0 cholecalciferol (vitamin D3) 2,000 unit tablet 2,000 units PO QDL RF: 0 diclofenac sodium 1 % gel 4 gm topical UD PRN (Reason: Pain) RF: 0 B-complex with vitamin C [Super B Complex-Vitamin C] Tablet 1 tab PO QDL RF: 0 Probiotic 3 billion cell Capsule 3,000 mmu cells PO QDL RF: 0 PreserVision AREDS-2 [id number] mg-asjc-ww-mg Capsule 1 tab PO BID RF: 0 calcium carbonate 500 mg calcium (1,250 mg) capsule 600 mg PO QDL RF: 0 lorazepam 1 mg tablet 0.25 mg PO HS PRN (Reason: sleep ) RF: 0 spironolactone 50 mg tablet 50 mg PO QAM RF: 0 Basaglar KwikPen U-100 Insulin 100 unit/mL (3 mL) insulin pen 28 units SQ HS RF: 0 Discharge Orders: Discharge Order (Routine); Ordered 01/15/21 Ordered By: Audi Barrientos Admission Data Admit Date/Time: 01/14/21 08:52 Attending Provider: Audi Barrientos Admit Provider: Audi Barrientos Primary Care Provider: Bg Morgan V.
[2021-01-15] MEDS: FUROSEMIDE 40 MG TAB PO SCH (07:55)
[2021-01-15] MEDS: MULTIVITAMIN TAB PO SCH (07:55)
[2021-01-15] MEDS: SPIRONOLACTONE 25 MG TAB PO SCH (07:55)
[2021-01-15] MEDS: VALSARTAN 80 MG TAB PO SCH (07:56)
[2021-01-15] MEDS: ASPIRIN 81 MG ECTAB PO SCH (07:56)
[2021-01-15] MEDS: DOCUSATE SODIUM 100 MG CAP PO SCH (07:57)
[2021-01-15] MEDS ORDERED: FOLIC ACID 1 MG TAB PO SCH (09:00)
[2021-01-18] MEDS ORDERED: metHOTREXate sodium 2.5 MG TAB PO SCH (09:00)
[2021-01-18] MEDS ORDERED: LEUCOVORIN CALCIUM 5 MG TAB PO SCH (09:00)
== END 2021-01-15 10:50 | disposition home health service (06) ==
LOC: ASU 05:14 → ASUINP 05:14 → PACUINP 10:37 → 3E 12:52